=== PATIENT | male | born 1945 | race Two or more races ===

== ENCOUNTER → 2017-03-02 | Emergency (ER) | payer OTHER ==
[~2017-03-02] MED LIST: KETOROLAC TROMETHAMINE 30 MG/1 ML VIAL IVPUSH ONE; KETOROLAC TROMETHAMINE 30 MG/1 ML VIAL ONE; SODIUM CHLORIDE 500 ML IV STA
[2017-03-02 15:41] VITALS: TEMP 98.4
--- NOTE | 2017-03-02 16:28 | PDOC ---
History of Present Illness - General History Source: Patient Exam Limitations: No Limitations - History of Present Illness Initial Comments: 03/02/17 16:49 71 yo M with a PMHx of Gout, DM, HTN who presents with fatigue, recurrent gout pain in R knee and hematuria. Patient states his knee pain regularly comes and goes and he receives injections into his knees. Patient states his normal Gout medication is allopurinol. Patient denies taking blood thinners. Patient also notes that his BP was very low yesterday and he had decreased appetite. Patient denies fevers, chills, N/V/D. Patient unsure if he had black tarry stool. Surgical Hx: multiple surgery on his back for scoliosis. PCP: Dr. Tammie gonzalez <Althea Flores - Last Filed: 03/02/17 18:12> <Tracee Lao - Last Filed: 03/02/17 19:03> - General Chief Complaint: Pain, Acute Stated Complaint: WEAKNESS Time Seen by Provider: 03/02/17 16:16 Past History <Althea Flores - Last Filed: 03/02/17 18:12> - Past Medical History Anemia: No Asthma: Yes Cancer: No COPD: No CHF: No Dementia: No Diabetes: Yes HTN: Yes Hypercholesterolemia: No Liver Disease: No Seizures: No - Surgical History Abdominal Surgery: No Appendectomy: No Cholecystectomy: No Lung Surgery: No Neurologic Surgery: No Orthopedic Surgery: Yes (pt states "I had 2 back surgeries in 1959, but doesn't remember what type") - Immunization History Immunization Up to Date: Yes - Psycho/Social/Smoking Cessation Hx Anxiety: No Suicidal Ideation: No Smoking Status: No Smoking History: Never smoked Years of Tobacco Use: 50 Have you smoked in the past 12 months: No Number of Cigarettes Smoked Daily: 0 Hx Alcohol Use: No Drug/Substance Use Hx: No Substance Use Type: None <Tracee Lao - Last Filed: 03/02/17 19:03> - Past Medical History Allergies/Adverse Reactions: Allergies Allergy/AdvReac Type Severity Reaction Status Date / Time No Known Allergies Allergy Verified 03/02/17 15:31 Home Medications: Ambulatory Orders Lisinopril [Prinivil -] 40 mg PO DAILY 07/31/14 Amlodipine Besylate 10 mg PO DAILY 12/05/15 Acetaminophen [Tylenol] 325 mg PO QID PRN 03/02/17 Albuterol Sulfate [Proventil HFA Inhaler -] 1 - 2 inh PO TID 03/02/17 Allopurinol [Zyloprim -] 100 mg PO BID 03/02/17 Fluticasone/Salmeterol [Advair 250-50 Diskus] 1 each IH 03/02/17 Review of Systems - Review of Systems Able to Perform ROS?: Yes Comments:: CONSTITUTIONAL: + Generalized weakness, loss of appetite. Absent: fever, chills , diaphoresis, malaise HEENT: Absent: rhinorrhea, nasal congestion, throat pain, throat swelling, difficulty swallowing, mouth swelling, ear pain, eye pain, visual Changes CARDIOVASCULAR: + Chest pain. Absent: syncope, palpitations, irregular heart rate, lightheadedness, peripheral edema RESPIRATORY: Absent: cough, shortness of breath, dyspnea with exertion, orthopnea, wheezing, stridor, hemoptysis GASTROINTESTINAL: + Mild abdominal pain. Absent: abdominal distension, nausea, vomiting, diarrhea, constipation, melena, hematochezia GENITOURINARY: + hematuria Absent: dysuria, frequency, urgency, hesitancy, flank pain, genital pain SKIN: Absent: rash, itching, pallor HEMATOLOGIC/IMMUNOLOGIC: Absent: easy bleeding, easy bruising, lymphadenopathy, frequent infections ENDOCRINE: Absent: unexplained weight gain, unexplained weight loss, heat intolerance, cold intolerance MUSCULOSKELETAL: + recuurent gout pain in R knee. NEUROLOGIC: Absent: headache, focal weakness or paresthesia, dizziness, unsteady gait, seizure, mental status changes, bladder or bowel incontinence PSYCHIATRIC: Absent: anxiety, depression, suicidal or homicidal ideation, hallucination Is the patient limited Citizen Of [place] proficient: Yes <Althea Flores - Last Filed: 03/02/17 18:12> *Physical Exam - Vital Signs Last Vital Signs Temp Pulse Resp BP Pulse Ox 98.4 F 100 H 18 176/88 98 03/02/17 15:39 03/02/17 15:39 03/02/17 15:39 03/02/17 15:39 03/02/17 15:39 - Physical Exam Comments: 03/02/17 17:02 GENERAL: Male of short stature, well nourished. Awake and alert and oriented. No acute distress. HEENT: Normocephalic, atraumatic. PERRLA, EOMI. No conjunctival pallor. Sclera are non- icteric. Moist mucous membranes. Oropharynx is clear. NECK: Supple. Full ROM. No JVD. Carotid pulses 2+ and symmetric, without bruits. No thyromegaly. No lymphadenopathy. CARDIOVASCULAR: Regular rate and rhythm. No murmurs, rubs, or gallops. Distal pulses are 2+ and symmetric. PULMONARY: No evidence of respiratory distress. Lungs clear to auscultation bilaterally. No wheezing, rales or rhonchi. ABDOMINAL: Soft. Non-tender. Non-distended. No rebound or guarding. No organomegaly. Normoactive bowel sounds. MUSCULOSKELETAL Significant Scoliosis. No CVA tenderness. EXTREMITIES: No cyanosis. No clubbing. No edema. No calf tenderness. SKIN: Warm and dry. Normal capillary refill. No rashes. No jaundice. NEUROLOGICAL: No gross focal deficits. Gait not assessed. PSYCHIATRIC: Cooperative. Good eye contact. Appropriate mood and affect. <Althea Flores - Last Filed: 03/02/17 18:12> - Vital Signs Last Vital Signs Temp Pulse Resp BP Pulse Ox 98.4 F 100 H 18 176/88 98 03/02/17 15:39 03/02/17 15:39 03/02/17 15:39 03/02/17 15:39 03/02/17 15:39 <Tracee Lao - Last Filed: 03/02/17 19:03> Heart Score/ECG Review - ECG Intrepretation Comment:: ECG NSR @ 92 bpm Normal ECG <ChrismerleneAlthea - Last Filed: 03/02/17 18:12> ED Treatment Course - LABORATORY CBC & Chemistry Diagram: 03/02/17 16:43 03/02/17 16:43 - RADIOLOGY Radiograph Interpretation: CXR Impression: No significant interval change or acute lung disease is present <Althea Flores - Last Filed: 03/02/17 18:12> - LABORATORY CBC & Chemistry Diagram: 03/02/17 16:43 03/02/17 16:43 <Tracee Lao - Last Filed: 03/02/17 19:03> Medical Decision Making - Medical Decision Making 03/02/17 18:58 31-year-old male presents with exacerbation of his gout, fatigue and malaise.His rt knee is painful and he has been taking alluputrinol Review his labs shows unremarkable, chemistries, +1 blood in his urine, negative cardiac enzymes, normal electrolytes, no leukocytosis and a chest x- ray that does not show any acute pulmonary disease EKG is normal sinus rhythm with no evidence of acute ischemia The patient's right knee is not edematous or erythematous. He doesn't have a fever. Patient does see an orthopedist for injections for his gout and he will follow- up. He already has an appointment with Dr.El Garcia for hematuria. <Tracee Lao - Last Filed: 03/02/17 19:03> *DC/Admit/Observation/Transfer - Attestations Scribe Attestion: 03/02/17 17:07 Documentation prepared by Althea Flores, acting as medical director occupational health for Tracee Lao MD/DO. <Althea Flores - Last Filed: 03/02/17 18:12> <Tracee Lao - Last Filed: 03/02/17 19:03> Diagnosis at time of Disposition: Microscopic hematuria Gout attack Qualifiers: Gout site: knee Gout etiology: unspecified cause Laterality: right Qualified Code(s): M10.9 - Gout, unspecified - Discharge Dispostion Disposition: HOME Condition at time of disposition: Stable - Referrals Referrals: Marti Macario MD [Primary Care Provider] - - Patient Instructions Printed Discharge Instructions: DI for Gout, DI for Hematuria Additional Instructions: -please keep your doctor's appointment -Take your lab results with you when you see your physician -return for any worsening symptoms -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
[2017-03-02 17:01] VITALS: BMI 34.4
[2017-03-02 17:18] LABS: BASOPHIL 0.4 % (0-2.0); EOSINOPHIL 3.2 % (0-4.5); MCHC 32.9 g/dl (32.0-35.9); MEAN CELL VOLUME 94.3 fl (80-96); MEAN PLT VOLUME 8.8 fl (7.5-11.1); PLATELET COUNT 204 K/MM3 (134-434); RDW 13.6 % (11.9-15.9); TROPONIN I < 0.02 ng/ml (0.00-0.05)
[2017-03-02 17:20] LABS: ALBUMIN 3.4 g/dl (3.4-5.0); BILIRUBIN,TOTAL 0.5 mg/dL (0.2-1.0); CREATININE 1.3 mg/dL (0.7-1.3); TOT PROT 7.6 g/dl (6.4-8.2)
[2017-03-02 17:21] LABS: INR 1.2 (0.82-1.09); PROTHROMBIN TIME (PATIENT) 13.3 SEC (9.98-11.88)
[2017-03-02 18:13] LABS: URINE APPEARANCE CLEAR; URINE BILIRUBIN NEGATIVE (NEGATIVE); URINE COLOR YELLOW; URINE GLUCOSE (UA) NEGATIVE (NEGATIVE); URINE KETONE TRACE (NEGATIVE); URINE LEUK ESTERASE NEGATIVE (NEGATIVE); URINE NITRITE NEGATIVE (NEGATIVE); URINE PROTEIN NEGATIVE (NEGATIVE); URINE UROBILINOGEN NEGATIVE E.U./dl (0.2-1.0)
[2017-03-02 18:14] LABS: URINE BLOOD 1+ (NEGATIVE)
[2017-03-02 18:34] VITALS: BP 117/77; PULSE 89
[2017-03-02 20:02] LABS: URINE MUCUS RARE; URINE RBC 1 /hpf (0-3); URINE WBC 1 /hpf (3-5)
--- NOTE | 2017-03-03 12:34 | EKG ---
Test Reason : Blood Pressure : / mmHG Vent. Rate : 092 BPM Atrial Rate : 092 BPM P-R Int : 138 ms QRS Dur : 072 ms QT Int : 336 ms P-R-T Axes : 066 -20 018 degrees QTc Int : 415 ms NORMAL SINUS RHYTHM NORMAL ECG WHEN COMPARED WITH ECG OF 17-NOV-2014 16:57, NO SIGNIFICANT CHANGE WAS FOUND Confirmed by CARLEY JAMES MD ([id number]) on 03/03/2017 12:34:14 PM Referred By: Confirmed By:CARLEY JAMES MD
== END | disposition home or self-care (01) ==
LOC: JER 15:17
PROC: 3E0333Z Introduction of Anti-inflammatory into Peripheral Vein, Percutaneous Approach (ICD-10-PCS; principal; 2017-03-02)
DX: R31.29 Other microscopic hematuria (principal); M10.9 Gout, unspecified; I10 Essential (primary) hypertension; E11.9 Type 2 diabetes mellitus without complications; J45.909 Unspecified asthma, uncomplicated
CPT/HCPCS: 36415; 71010-TC; 80053; 81003; 81015; 82272; 82550; 84484; 85025; 85610; 85651; 86850; 86900; 86901; 87086; 93005; 93010; 96374; 99283-25

== ENCOUNTER 2017-04-17 06:19 | Inpatient (IN) | payer OTHER ==
[2017-04-17 06:35] VITALS: BMI 24.4
[2017-04-17 07:09] LABS: BASOPHIL 0.1 % (0-2.0); EOSINOPHIL 0.3 % (0-4.5); MCH 31.1 pg (25.7-33.7); MCHC 33.2 g/dl (32.0-35.9); MEAN CELL VOLUME 93.7 fl (80-96); NEUTROPHILS 89.6 % (42.8-82.8); PLATELET COUNT 153 K/MM3 (134-434); RDW 13.9 % (11.9-15.9); WHITE BLOOD COUNT 11.2 K/mm3 (4.0-10.0)
[2017-04-17 07:33] LABS: ALBUMIN 2.9 g/dl (3.4-5.0); ANION GAP 8 (8-16); BILIRUBIN,TOTAL 0.9 mg/dL (0.2-1.0); CALCIUM 7.7 mg/dL (8.5-10.1); CO2 21 mmol/L (21-32); CREATININE 1.3 mg/dL (0.7-1.3); GLUCOSE,RANDOM 119 mg/dL (74-106); SGOT/AST 11 U/L (15-37); SGPT/ALT 11 U/L (12-78); TOT PROT 6.2 g/dl (6.4-8.2)
[2017-04-17 07:34] LABS: ALK PHOS 95 U/L (45-117)
--- NOTE | 2017-04-17 07:49 | PDOC ---
History of Present Illness - History of Present Illness Initial Comments: 04/17/17 14:58 The patient is a 71 year old male, with a significant past medical history of hypertension (taking lisinopril 40mg), diabetes mellitus (d/c from medication), gout, and scoliosis (s/p multiple surgeries), who presents to the emergency department with fever (Tmax 101.7F) and chills since last night. The patient reports having a prostate biopsy on . He states he was placed on levaquin after the procedure for dysuria and urethral bleeding. He denies chest pain, shortness of breath, headache and dizziness. He denies back pain, nausea, vomit, diarrhea and constipation. He denies frequency and urgency. Allergies: NKDA PCP - Dr. Macario Urologist - Dr. Lopez <Geraldine Vences - Last Filed: 04/17/17 14:57> <Lee Rowe - Last Filed: 04/17/17 16:29> - General Chief Complaint: Respiratory Stated Complaint: FEVER Time Seen by Provider: 04/17/17 07:43 Past History <Geraldine Vences - Last Filed: 04/17/17 14:57> - Past Medical History Anemia: No Asthma: Yes Cancer: No COPD: No CHF: No Dementia: No Diabetes: Yes HTN: Yes Hypercholesterolemia: No Liver Disease: No Seizures: No - Surgical History Abdominal Surgery: No Appendectomy: No Cholecystectomy: No Lung Surgery: No Neurologic Surgery: No Orthopedic Surgery: Yes (pt states "I had 2 back surgeries in 1959, but doesn't remember what type") - Immunization History Immunization Up to Date: Yes - Psycho/Social/Smoking Cessation Hx Anxiety: No Suicidal Ideation: No Smoking Status: No Smoking History: Unknown if ever smoked Years of Tobacco Use: 50 Have you smoked in the past 12 months: No Number of Cigarettes Smoked Daily: 0 Information on smoking cessation initiated: No Hx Alcohol Use: No Drug/Substance Use Hx: No Substance Use Type: None <Lee Rowe - Last Filed: 04/17/17 16:29> - Past Medical History Allergies/Adverse Reactions: Allergies Allergy/AdvReac Type Severity Reaction Status Date / Time No Known Allergies Allergy Verified 04/17/17 06:33 Home Medications: Ambulatory Orders Acetaminophen [Mapap] 500 mg PO TID 04/17/17 Albuterol Sulfate [Proventil HFA Inhaler -] 1 - 2 inh PO TID 04/17/17 Allopurinol [Zyloprim -] 100 mg PO BID 04/17/17 Amlodipine Besylate/Benazepril [Lotrel 5-40 mg Capsule] 1 each PO DAILY Levofloxacin [Levaquin -] 500 mg PO DAILY 04/17/17 Paroxetine HCl [Paxil] 20 mg PO DAILY 04/17/17 Tamsulosin HCl 0.4 mg PO DAILY 04/17/17 Zolpidem Tartrate [Ambien] 10 mg PO HS 04/17/17 Review of Systems - Review of Systems Able to Perform ROS?: Yes Comments:: 04/17/17 14:58 CONSTITUTIONAL: (+) Fever, Chills, No reported:Diaphoresis, Generalized Weakness, Malaise, Loss of Appetite HEENT: No reported: Rhinorrhea, Nasal Congestion, Throat Pain, Throat Swelling, Difficulty Swallowing, Mouth Swelling, Ear Pain, Eye Pain, Visual Changes CARDIOVASCULAR: No reported: Chest Pain, Syncope, Palpitations, Irregular Heart Rate, Lightheadedness, Peripheral Edema RESPIRATORY: No reported: Cough, Shortness of Breath, SOB with Exertion, Orthopnea, Wheezing , Stridor, Hemoptysis GASTROINTESTINAL: No reported: Abdominal pain, Abdominal Distension, Nausea, Vomiting, Diarrhea, Constipation, Melena, Hematochezia GENITOURINARY: No reported: Dysuria, Frequency, Urgency, Hesitancy, Flank Pain, Genital Pain MUSCULOSKELETAL: No reported: Myalgia, Arthralgia, Joint Swelling, Back pain, Neck Pain SKIN: No reported: Rash, Itching, Pallor HEMEATOLOGIC/IMMUNOLOGIC: No reported: Easy Bleeding, Easy Bruising, Lymphadenopathy, Frequent infections ENDOCRINE: No reported: Unexplained Weight Gain, Unexplained Weight Loss, Heat Intolerance , Cold Intolerance NEUROLOGIC: No reported: Headache, Focal Weakness, Paresthesias, Vertigo, Lightheadedness, Unsteady Gait, Seizure, Mental Status Changes, Incontinence PSYCHIATRIC: No reported: Anxiety, Depression <Geraldine Vences - Last Filed: 04/17/17 14:57> *Physical Exam - Vital Signs Last Vital Signs Temp Pulse Resp BP Pulse Ox 101.0 F H 90 20 137/69 96 04/17/17 08:09 04/17/17 08:09 04/17/17 08:09 04/17/17 08:09 04/17/17 08:09 - Physical Exam Comments: 04/17/17 14:59 GENERAL: (+) The patient is febrile, awake, alert, and fully oriented, Nontoxic - in no acute distress. HEAD: Normocephalic, atraumatic. EYES: extraocular movements intact, sclera anicteric, conjunctiva clear. ENT: Normal voice, Moist mucous membranes. NECK: Normal range of motion, supple LUNGS: Breath sounds equal, clear to auscultation bilaterally. No wheezes, no rhonchi, no rales. HEART: Regular rate and rhythm, without murmur, rub or gallop. ABDOMEN: Soft, nontender, normoactive bowel sounds. No guarding, no rebound.No CVA tenderness EXTREMITIES: Normal range of motion, no edema. No clubbing or cyanosis. No cords, erythema, or tenderness. NEUROLOGICAL: No facial assymetry, Normal speech, PSYCH: Normal mood, normal affect. SKIN: Warm, Dry, normal turgor, <Geraldine Vences - Last Filed: 04/17/17 14:57> - Vital Signs Last Vital Signs Temp Pulse Resp BP Pulse Ox 101.7 F H 108 H 20 131/76 95 04/17/17 06:33 04/17/17 06:33 04/17/17 06:33 04/17/17 06:33 04/17/17 07:07 <Lee Rowe - Last Filed: 04/17/17 16:29> Heart Score/ECG Review - ECG Impressions Comment:: 04/17/17 16:29 Twelve-lead EKG was performed and reviewed by me. There is normal sinus rhythm with a normal rate. Rate of 99 Left axis deviation <Lee Rowe - Last Filed: 04/17/17 16:29> ED Treatment Course - LABORATORY CBC & Chemistry Diagram: 04/17/17 09:00 04/17/17 06:40 - ADDITIONAL ORDERS Additional order review: 04/17/17 06:40 RBC 3.58 L MCV 93.7 MCHC 33.2 RDW 13.9 MPV 8.0 Neutrophils % 89.6 H D Lymphocytes % 4.1 L D Monocytes % 5.9 Eosinophils % 0.3 D Basophils % 0.1 - RADIOLOGY Radiograph Interpretation: 04/17/17 09:04 EXAM#: TYPE/EXAM: RESULT: [id number] RAD/CHEST X-RAY PORTABLE* AP portable chest was read by Lenard Marie MD at 08:55 Since 03/02/2017, there is some new platelike atelectasis at the left base. There is a scoliosis, apical lordotic projection, prominent sclerotic knob, normal chris and normal heart. There is no sign of infiltrate or failure. The angles are sharp. The soft tissues are intact. Correlation recommended. - Medications Given in the ED: ED Medications Discontinued Medications Generic Name Dose Route Start Last Admin Trade Name Freq PRN Reason Stop Dose Admin Acetaminophen 650 mg 04/17/17 08:11 04/17/17 08:25 Tylenol - PO 04/17/17 08:12 650 mg ONCE ONE Administration <Geraldine Vences - Last Filed: 04/17/17 14:57> - LABORATORY CBC & Chemistry Diagram: 04/17/17 09:00 04/17/17 06:40 - ADDITIONAL ORDERS Additional order review: 04/17/17 06:40 RBC 3.58 L MCV 93.7 MCHC 33.2 RDW 13.9 MPV 8.0 Neutrophils % 89.6 H D Lymphocytes % 4.1 L D Monocytes % 5.9 Eosinophils % 0.3 D Basophils % 0.1 <Lee Rowe - Last Filed: 04/17/17 16:29> Medical Decision Making - Medical Decision Making 04/17/17 10:03 Dr. Lopez was called at the office at the patient's case was discussed. <Geraldine Vences - Last Filed: 04/17/17 14:57> - Medical Decision Making 04/17/17 08:25 71y M hx dm, htn, HL, recent prostate biopsy on thrusday presenting with fever/ chills since last nightand burning on urination without other complaints. suspect gram neagative sepsis 04/17/17 08:38 04/17/17 10:[address] Johnson agreed with admission dr. lauren notified agreed with admission will admit for further mangaement of sepsis and suspected bacteremia Case discussed in detail with admitting physician including history, physical exam and ancillary studies. Admitting physician has assumed care for the patient, will follow all pending diagnostics and will complete the evaluation and treatment. <Lee Rowe - Last Filed: 04/17/17 16:29> *DC/Admit/Observation/Transfer - Attestations Scribe Attestion: 04/17/17 09:05 Documentation prepared by Geraldine Vences, acting as medical care administrator for Lee Rowe MD, <Geraldine Vences - Last Filed: 04/17/17 14:57> - Discharge Dispostion Admit: Yes <Lee Rowe - Last Filed: 04/17/17 16:29> Diagnosis at time of Disposition: Sepsis Qualifiers: Sepsis type: sepsis due to unspecified organism Qualified Code(s): A41.9 - Sepsis, unspecified organism - Referrals
[2017-04-17] MEDS ORDERED: ACETAMINOPHEN 325 MG TABLET (FP) PO ONE ×2 (08:11→20:03)
[2017-04-17] MEDS ORDERED: ACETAMINOPHEN 325 MG TABLET (FP) ONE (08:13)
[2017-04-17 09:07] LABS: VENOUS PH 7.4 (7.32-7.42)
[2017-04-17 09:08] LABS: VENOUS BLOOD GAS HCO3 23.2 meq/L (19-25)
[2017-04-17 09:15] LABS: BASOPHIL 0.1 % (0-2.0); EOSINOPHIL 0.2 % (0-4.5); MCH 30.8 pg (25.7-33.7); MEAN CELL VOLUME 93.5 fl (80-96); NEUTROPHILS 87.5 % (42.8-82.8); PLATELET COUNT 158 K/MM3 (134-434); RDW 13.9 % (11.9-15.9); WHITE BLOOD COUNT 11.8 K/mm3 (4.0-10.0)
[2017-04-17 09:20] LABS: URINE APPEARANCE CLEAR; URINE BILIRUBIN NEGATIVE (NEGATIVE); URINE BLOOD 1+ (NEGATIVE); URINE COLOR LTYELLOW; URINE GLUCOSE (UA) NEGATIVE (NEGATIVE); URINE KETONE NEGATIVE (NEGATIVE); URINE NITRITE NEGATIVE (NEGATIVE); URINE PROTEIN NEGATIVE (NEGATIVE); URINE UROBILINOGEN NEGATIVE mg/dL (0.2-1.0)
[2017-04-17 09:38] LABS: TROPONIN I < 0.02 ng/ml (0.00-0.05)
[2017-04-17] MEDS ORDERED: AMPICILLIN NA/SULBACTAM NA 3 GM in SODIUM CHLORIDE 100 ML IVPB ONE ×2 (09:40→10:30)
[2017-04-17 09:44] LABS: URINE LEUK ESTERASE 2+ (NEGATIVE)
[2017-04-17 09:51] LABS: URINE BACTERIA FEW /hpf (NONE SEEN); URINE HYALINE CAST 3 /lpf; URINE MUCUS RARE; URINE RBC 3 /hpf (0-3); URINE WBC 64 /hpf (3-5)
[2017-04-17 10:00] LABS: INR 1.43 (0.82-1.09); PROTHROMBIN TIME (PATIENT) 15.8 SEC (9.98-11.88)
[2017-04-17 10:03] LABS: ACTIVATED PTT 29.7 SECONDS (26.9-34.4)
[2017-04-17] MEDS ORDERED: ACETAMINOPHEN 325 MG TABLET (FP) PO PRN (10:58)
--- NOTE | 2017-04-17 11:01 | HP ---
CHIEF COMPLAINT: fevers and chills PCP: Dr. Cho HISTORY OF PRESENT ILLNESS: 71 yr old man with HTN, gout, enlarged prostate bibems to ED with fever and chills since last night starting at 6pm and sob this morning. He underwent a prostate biopsy on in 's office. Since then he has been having dysuria, hematuria and urinary frequency. ER course was notable for: (1) lactic acid 1.2, EKG NSR without acute changes (2) fever 101, u/a with elevated wbc, leucocytosis Recent Travel: none PAST MEDICAL HISTORY: HTN scoliosis DM - no longer diabetic Enlarged prostate right scrotal hernia PAST SURGICAL HISTORY: hx of spinal surgery in the 50s for scoliosis recent prostate biopsy on previous prostate biopsy 10 yrs ago for enlarged prostate, after which he also experienced fever/chills and required hospitalization Social History: Smoking:quit >20 yrs ago, smoked 1pk/day for 5 years Alcohol: never Drugs: never Family History: Mom with uterine cancer and DM father with stomach ulcer Brother with lung cancer (was a chronic smoker) Allergies No Known Allergies Allergy (Verified 04/17/17 06:33) Home medications: confirmed from [facility] on [address] prescriber: Dr. De, rx picked up Levaquin 500mg 1 tablet daily - 14 days, picked up flomax 0.4mg 1 tablet daily tylenol 500mg 2tabs twice a day - 120 pills picked up 04/05 ciprodex otic suspension for 5 days nystatin powder 60gm for foot bid for 5 days picked up 03/[address] Tammie brito 10mg [address] Cho paxil 20mg daily (Dr. Elam'official) february 13 singular 10mg daily October 23 2016 Lotrel 10-40 30-day supply did not refill it HOME MEDICATIONS: Home Medications Medication Instructions Recorded Acetaminophen [Mapap] 500 mg PO TID 04/17/17 Albuterol Sulfate [Proventil HFA 1 - 2 inh PO TID 04/17/17 Inhaler -] Amlodipine Besylate/Benazepril 1 each PO DAILY 04/17/17 [Lotrel 5-40 mg Capsule] Levofloxacin [Levaquin -] 500 mg PO DAILY 04/17/17 Tamsulosin HCl 0.4 mg PO DAILY 04/17/17 REVIEW OF SYSTEMS CONSTITUTIONAL: Present: fever, chills, Absent: diaphoresis, generalized weakness, malaise, loss of appetite, weight change HEENT: Absent: rhinorrhea, nasal congestion, throat pain, throat swelling, difficulty swallowing, mouth swelling, ear pain, eye pain, visual changes CARDIOVASCULAR: Absent: chest pain, syncope, palpitations, irregular heart rate, lightheadedness , peripheral edema RESPIRATORY: Present:shortness of breath, Absent: cough, dyspnea with exertion GASTROINTESTINAL: Absent: abdominal pain, abdominal distension, nausea, vomiting, diarrhea, constipation, melena, hematochezia GENITOURINARY: Present:dysuria, frequency,hematuria, Absent: urgency, hesitancy, flank pain, genital pain MUSCULOSKELETAL: Absent: myalgia, arthralgia, joint swelling, back pain, neck pain NEUROLOGIC: Absent: headache,dizziness, unsteady gait, seizure, mental status changes, bladder or bowel incontinence PHYSICAL EXAMINATION GENERAL: Awake, alert, and fully oriented, in no acute distress. HEAD: Normal with no signs of trauma. EYES: Pupils equal, round and reactive to light, extraocular movements intact, sclera anicteric, conjunctiva clear. No lid lag. EARS, NOSE, THROAT: Ears normal, nares patent, oropharynx clear without exudates. Moist mucous membranes. NECK: Normal range of motion, supple without lymphadenopathy, JVD, or masses. LUNGS: Breath sounds equal, clear to auscultation bilaterally. No wheezes, and no crackles. No accessory muscle use. HEART: Regular rate and rhythm, normal S1 and S2 without murmur, rub or gallop. ABDOMEN: Soft, nontender, not distended, normoactive bowel sounds, no guarding, no rebound, no masses. MUSCULOSKELETAL: sciolosis, wnl range of motion at neck, shoulder, elbow, hip, wrists, knees and ankles. No CVA tenderness. well-healed lumbar spine scar and well healed left lower back scar. no spinal tenderness UPPER EXTREMITIES: 2+ radial pulses, warm, well-perfused. No cyanosis. No clubbing. No peripheral edema. LOWER EXTREMITIES: 1+ dp pulses, warm, well-perfused. No calf tenderness. No peripheral edema. NEUROLOGICAL: Cranial nerves II-XII intact. Normal speech. Normal gait. facial symmetry PSYCHIATRIC: Cooperative. Good eye contact. Appropriate mood and affect. SKIN: Warm, dry, normal turgor, no rashes or lesions noted, normal capillary refill. GENITAL: left scrotal hernia in lower part of scrotum, testes soft/mobile, normal uncircumcised male genitalia, no discharge, no erythema, no lesions. Active Medications Acetaminophen (Tylenol -) 500 mg PO TID [facility] Allopurinol (Zyloprim -) 100 mg PO BID [facility] Heparin Sodium (Porcine) (Heparin -) 5,000 unit SQ BID LIOR Sodium Chloride (Normal Saline -) 1,000 mls @ 100 mls/hr IV ASDIR [facility] Levofloxacin (Levaquin 500 Mg Premixed Ivpb -) 100 mls @ 100 mls/hr IVPB DAILY ONE Stop: 04/18/17 13:12 Non-Formulary Medication (Zolpidem Tartrate [Ambien]) 10 mg PO HS [facility] Paroxetine HCl (Paxil -) 20 mg PO DAILY [facility] Tamsulosin HCl (Flomax -) 0.4 mg PO DAILY [facility] Active Medications Acetaminophen (Tylenol -) 500 mg PO TID [facility] Last Admin: 04/17/17 14:28 Dose: 500 mg Heparin Sodium (Porcine) (Heparin -) 5,000 unit SQ BID LIOR Sodium Chloride (Normal Saline -) 1,000 mls @ 100 mls/hr IV ASDIR [facility] Last Admin: 04/17/17 13:15 Dose: 100 mls/hr Levofloxacin (Levaquin 250 Mg Premixed Ivpb -) 50 mls @ 50 mls/hr IVPB DAILY [facility] Paroxetine HCl (Paxil -) 20 mg PO DAILY [facility] Tamsulosin HCl (Flomax -) 0.4 mg PO DAILY [facility] Zolpidem Tartrate (Ambien -) 5 mg PO HS PRN cxy: without acute lung pathology EKG: NSR ASSESSMENT/PLAN: 71 yr old man with recent prostate biopsy presents with sepsis likely from UTI( leuk+, dysuria, leucocytosis in u/a) or prostatitis. #sepsis (tachy, fever, source) IVF NS @100c/hr levaquin 500mg IVPB loading dose today and 250mg ivpb tomorrow, according to cockcroft formula pt's Cr is 39, this would be the renal dose for him. discussed with pharmacist. tylenol 500mg po TID for fevers await bld and urine cx Dr. ricardo was unable to be reached today, consult placed #HTN - hold lotrel as pt not on it since Sep, currently normotensive #Corrected Ca+ 8.5 #hx of DM - hba1c to r/o DM - not on any medications DVT: heparin BID Diet: sodium controlled regular Visit type - Emergency Visit Emergency Visit: Yes ED Registration Date: 04/17/17 Care time: The patient presented to the Emergency Department on the above date and was hospitalized for further evaluation of their emergent condition. - New Patient This patient is new to me today: Yes Date on this admission: 04/17/17 - Critical Care Critical Care patient: No
[2017-04-17] MEDS ORDERED: LEVOFLOXACIN 500 MG IVPB 100 ML IVPB ONE (12:13)
[2017-04-17] MEDS: SODIUM CHLORIDE 1,000 ML IV SCH (13:15)
--- NOTE | 2017-04-17 14:12 | PN ---
Teaching Attending Note Name of Resident: Mirna Dyson ATTENDING PHYSICIAN STATEMENT I saw and evaluated the patient. I reviewed the resident's note and discussed the case with the resident. I agree with the resident's findings and plan as documented. SUBJECTIVE:71yo M c/o dysuria with assoc subjective fevers and chills x3days. Pt had prostate Bx on 04/[address] Lopez and started developing symptoms once he got home. started on levaquin po and has taken it for 3 days. had similar episode several years ago when he had prostate bx at that time. denies Cp, SOB,N /V/C/D, hematuria. OBJECTIVE: Last Vital Signs Temp Pulse Resp BP Pulse Ox 98.8 F 81 20 135/66 96 04/17/17 12:59 04/17/17 12:59 04/17/17 12:59 04/17/17 12:59 04/17/17 11:20 General NAD CV S1 S2 RRR no murmur/rub/gallop Lungs CTA B/L no wheezing/rales/rhonchi Abdomen soft NT/ND Extremities no pedal edema ASSESSMENT AND PLAN: 71yo M with PMH HTN and DM and gout presented to the ER with dysuria with fever and chills and found to be septic 1. Sepsis with high suspicion for UTI- medicine admission. Tm 101 with tachypnea meeting SIRS criteria. Awaiting UA but has high suspicion for UTI vs prostatis due to recent procedure. switch to Levaquin IV. BCx and UCx. consult Dr Jeffry Garcia. cont IVF, flomax 2. HTN- currently normotensive. hold oral agents as currently septic. will resume when required 3. gout- no signs of gout attack. hold allopurinol at this time 4. Hx of DM- states he is no longer diabetic and does not take medications at this time. check A1c 5. DVT ppx- start hep sq
[2017-04-17] MEDS: ACETAMINOPHEN 500 MG TABLET (FP) PO SCH ×2 (14:28→21:51)
[2017-04-17] MEDS: HEPARIN NA (PORCINE) 5,000 UNITS/ML 1ML VIAL SQ SCH (21:50)
[2017-04-17] MEDS ORDERED: ALLOPURINOL 100 MG TABLET (FP) PO SCH (22:00)
[2017-04-17] MEDS ORDERED: ZOLPIDEM TARTRATE 5 MG TABLET PO PRN (22:00)
[2017-04-18] MEDS: SODIUM CHLORIDE 1,000 ML IV SCH (04:38)
[2017-04-18] MEDS: ACETAMINOPHEN 500 MG TABLET (FP) PO SCH ×3 (06:05→21:52)
[2017-04-18] MEDS ORDERED: ONDANSETRON 4 MG/2 ML VIAL IVPB ONE (06:24)
[2017-04-18 07:46] LABS: BASOPHIL 0.2 % (0-2.0); EOSINOPHIL 0.7 % (0-4.5); MCH 31.9 pg (25.7-33.7); MCHC 33.8 g/dl (32.0-35.9); MEAN CELL VOLUME 94.3 fl (80-96); MEAN PLT VOLUME 8.1 fl (7.5-11.1); NEUTROPHILS 84.4 % (42.8-82.8); PLATELET COUNT 150 K/MM3 (134-434); RDW 14.2 % (11.9-15.9); WHITE BLOOD COUNT 10.8 K/mm3 (4.0-10.0)
[2017-04-18 08:16] LABS: ANION GAP 7 (8-16); CO2 22 mmol/L (21-32); CREATININE 1.1 mg/dL (0.7-1.3); GLUCOSE,RANDOM 100 mg/dL (74-106)
[2017-04-18 08:17] LABS: CALCIUM 8.5 mg/dL (8.5-10.1)
--- NOTE | 2017-04-18 09:14 | PN ---
Progress Note (short form) - Note Progress Note: currently asymptomatic. fevers and chills resolved. denies CP, SOB,fever, chills , N/V/C/D Current Medications Generic Name Dose Route Start Last Admin Trade Name Sol PRN Reason Stop Dose Admin Acetaminophen 500 mg 04/17/17 14:00 04/18/17 06:05 Tylenol - PO 500 mg TID LIOR Administration Heparin Sodium (Porcine) 5,000 unit 04/17/17 22:00 04/17/17 21:50 Heparin - SQ 5,000 unit BID LIOR Administration Sodium Chloride 1,000 mls @ 100 mls/hr 04/17/17 11:00 04/18/17 04:38 Normal Saline - IV 100 mls/hr ASDIR LIOR Administration Levofloxacin 50 mls @ 50 mls/hr 04/18/17 10:00 Levaquin 250 Mg Premixed Ivpb - IVPB DAILY LIOR Famotidine/Sodium Chloride 50 mls @ 100 mls/hr 04/18/17 10:00 Pepcid 20 Mg Premixed Ivpb - IVPB BID LIOR Paroxetine HCl 20 mg 04/18/17 10:00 Paxil - PO DAILY LIOR Tamsulosin HCl 0.4 mg 04/18/17 10:00 Flomax - PO DAILY LIOR Zolpidem Tartrate 5 mg 04/17/17 22:00 Ambien - PO HS PRN Last Vital Signs Temp Pulse Resp BP Pulse Ox 98.9 F 80 18 131/67 95 04/18/17 08:00 04/18/17 08:00 04/18/17 08:00 04/18/17 08:00 04/17/17 21:00 General NAD CV S1 S2 RRR no murmur/rub/gallop Lungs CTA B/L no wheezing/rales/rhonchi Abdomen soft NT/ND Extremities no pedal edema CBCD WBC 10.8 K/mm3 (4.0-10.0) H 04/18/17 06:55 RBC 3.58 M/mm3 (4.00-5.60) L 04/18/17 06:55 Hgb 11.4 GM/dL (11.7-16.9) L 04/18/17 06:55 Hct 33.8 % (35.4-49) L 04/18/17 06:55 MCV 94.3 fl (80-96) 04/18/17 06:55 MCHC 33.8 g/dl (32.0-35.9) 04/18/17 06:55 RDW 14.2 % (11.9-15.9) 04/18/17 06:55 Plt Count 150 K/MM3 (134-434) 04/18/17 06:55 MPV 8.1 fl (7.5-11.1) 04/18/17 06:55 CMP Sodium 137 mmol/L (136-145) 04/18/17 06:55 Potassium 3.8 mmol/L (3.5-5.1) 04/18/17 06:55 Chloride 108 mmol/L (98-107) H 04/18/17 06:55 Carbon Dioxide 22 mmol/L (21-32) 04/18/17 06:55 Anion Gap 7 (8-16) L 04/18/17 06:55 BUN 14 mg/dL (7-18) D 04/18/17 06:55 Creatinine 1.1 mg/dL (0.7-1.3) 04/18/17 06:55 Creat Clearance w eGFR 54.11 (>60) 04/17/17 06:40 Calcium 8.5 mg/dL (8.5-10.1) 04/18/17 06:55 Total Bilirubin 0.9 mg/dL (0.2-1.0) D 04/17/17 06:40 AST 11 U/L (15-37) L D 04/17/17 06:40 ALT 11 U/L (12-78) L D 04/17/17 06:40 Alkaline Phosphatase 95 U/L (45-117) 04/17/17 06:40 Total Protein 6.2 g/dl (6.4-8.2) L 04/17/17 06:40 Albumin 2.9 g/dl (3.4-5.0) L 04/17/17 06:40 Microbiology 04/17/17 09:00 Urine Culture - Final Urine - Urine Clean Catch NO GROWTH OBTAINED 04/17/17 06:40 Blood Culture - Preliminary Blood - Peripheral Venous NO GROWTH OBTAINED AFTER 24 HOURS, INCUBATION TO CONTINUE FOR 4 DAYS. 04/17/17 06:40 Blood Culture - Preliminary Blood - Peripheral Venous NO GROWTH OBTAINED AFTER 24 HOURS, INCUBATION TO CONTINUE FOR 4 DAYS. ASSESSMENT AND PLAN: 71yo M with PMH HTN and DM and gout presented to the ER with dysuria with fever and chills and found to be septic 1. Sepsis with high suspicion for UTI- afebrile 24H. clinically improved. Ucx negative however was on po abx for 3 days prior to presentation. awaiting urology evaluation. on levaquin day 2. d/c IVF. 2. HTN- slightly above goal. will re-start acei at lower dose. hold norvasc. 3. gout- no signs of gout attack. hold allopurinol at this time 4. Hx of DM- states he is no longer diabetic and does not take medications at this time. A1c pending 5. DVT ppx- hep sq 6. d/c planning in the AM, as awaiting urology consult. no response from answering service Visit type - Emergency Visit Emergency Visit: Yes ED Registration Date: 04/17/17 Care time: The patient presented to the Emergency Department on the above date and was hospitalized for further evaluation of their emergent condition. - New Patient This patient is new to me today: No - Critical Care Critical Care patient: No - Discharge Referral Referred to [facility] No
[2017-04-18] MEDS ORDERED: LEVOFLOXACIN 500 MG IVPB 100 ML IVPB SCH (10:00)
[2017-04-18] MEDS: LEVOFLOXACIN 250 MG IVPB 50 ML IVPB SCH (10:02)
[2017-04-18] MEDS: FAMOTIDINE 20 MG/50 ML IVPB 50 ML IVPB SCH ×2 (10:02→21:56)
[2017-04-18] MEDS: HEPARIN NA (PORCINE) 5,000 UNITS/ML 1ML VIAL SQ SCH ×2 (10:03→21:56)
[2017-04-18] MEDS: LISINOPRIL 20 MG TABLET (FP) PO SCH (10:03)
[2017-04-18] MEDS: TAMSULOSIN HCL 0.4 MG CAP.ER.24H (FP) PO SCH (10:03)
[2017-04-18] MEDS: PARoxetine HCL 20 MG TABLET (FP) PO SCH (10:03)
[2017-04-19] MEDS: ACETAMINOPHEN 500 MG TABLET (FP) PO SCH (06:22)
[2017-04-19 08:44] VITALS: BP 145/65; PULSE 73; TEMP 98.2
[2017-04-19] MEDS: TAMSULOSIN HCL 0.4 MG CAP.ER.24H (FP) PO SCH (08:55)
--- NOTE | 2017-04-19 09:28 | EKG ---
Test Reason : Blood Pressure : / mmHG Vent. Rate : 099 BPM Atrial Rate : 099 BPM P-R Int : 136 ms QRS Dur : 084 ms QT Int : 332 ms P-R-T Axes : 031 -30 027 degrees QTc Int : 426 ms NORMAL SINUS RHYTHM LEFT AXIS DEVIATION ABNORMAL ECG WHEN COMPARED WITH ECG OF 02-MAR-2017 17:04, NO SIGNIFICANT CHANGE WAS FOUND Confirmed by PHILLY UP MD ([id number]) on 04/19/2017 9:28:07 AM Referred By: Confirmed By:PHILLY UP MD
[2017-04-19] MEDS: LISINOPRIL 20 MG TABLET (FP) PO SCH (10:30)
[2017-04-19] MEDS: PARoxetine HCL 20 MG TABLET (FP) PO SCH (10:30)
[2017-04-19] MEDS: HEPARIN NA (PORCINE) 5,000 UNITS/ML 1ML VIAL SQ SCH (10:32)
[2017-04-19] MEDS: FAMOTIDINE 20 MG/50 ML IVPB 50 ML IVPB SCH (10:37)
[2017-04-19] MEDS: LEVOFLOXACIN 250 MG IVPB 50 ML IVPB SCH (10:37)
[2017-04-19] MEDS ORDERED: LEVOFLOXACIN 250 MG TABLET (FP) PO SCH (11:30)
--- NOTE | 2017-04-19 11:49 | PN ---
Teaching Attending Note Name of Resident: Miguel Angel Roper ATTENDING PHYSICIAN STATEMENT I saw and evaluated the patient. I reviewed the resident's note and discussed the case with the resident. I agree with the resident's findings and plan as documented. SUBJECTIVE:asymptomatic. denies CP, SOB, fever, chills, abdominal pain, dysuria , hematuria OBJECTIVE: Last Vital Signs Temp Pulse Resp BP Pulse Ox 98.2 F 73 18 145/65 95 04/19/17 08:41 04/19/17 08:41 04/19/17 08:41 04/19/17 08:41 04/18/17 21:00 General NAD Abdomen soft NT/ND no suprapubic tenderness ASSESSMENT AND PLAN: 71yo M with PMH HTN and DM and gout presented to the ER with dysuria with fever and chills and found to be septic 1. Sepsis with high suspicion for UTI- afebrile 24H. clinically improved. Ucx negative however was on po abx for 3 days prior to presentation. spoke with Dr Jeffry Garcia who will see patient in office on (04/22) states to continue levaquin 500mg until he is evaluated in the office. 2. HTN- slightly above goal. re-start home medications at this time 3. gout- no signs of gout attack. resume 4. Hx of DM-A1c 5.8 5. DVT ppx- hep sq 6. d/c home with urology f/u this week.
[2017-04-19] MEDS ORDERED: LEVOFLOXACIN 250 MG TABLET (FP) PO STA (12:00)
--- NOTE | 2017-04-19 13:27 | DS ---
Physical Exam: LABS Last Vital Signs Temp Pulse Resp BP Pulse Ox 98.2 F 73 18 145/65 95 04/19/17 08:41 04/19/17 08:41 04/19/17 08:41 04/19/17 08:41 04/18/17 21:00 Notes 04/19/17 01:40 Nurse by Katherine Garrison Pt is aao,italian speaking,oob to toilet,afebrile,no c/o pain,ivf d/c,abx given, will continue to monitor. Laboratory Tests 04/17/17 04/17/17 04/17/17 06:40 09:00 09:00 WBC 11.2 H D 11.8 H RBC Hgb Hct MCV Plt Count Neutrophils % 89.6 H D 87.5 H Sodium Potassium Chloride Carbon Dioxide Anion Gap BUN Creatinine Urine Color Ltyellow Urine Appearance Clear Urine pH 5.0 Ur Specific [place] 1.015 Urine Protein Negative Urine Glucose (UA) Negative Urine Ketones Negative Urine Blood 1+ H Urine Nitrite Negative Urine Bilirubin Negative Urine Urobilinogen Negative Ur Leukocyte Esterase 2+ H Urine RBC 3 Urine WBC 64 Urine Bacteria Few Hyaline Casts 3 Urine Mucus Rare 04/18/17 04/18/17 06:55 06:55 WBC 10.8 H RBC 3.58 L Hgb 11.4 L Hct 33.8 L MCV 94.3 Plt Count 150 Neutrophils % 84.4 H Sodium 137 Potassium 3.8 Chloride 108 H Carbon Dioxide 22 Anion Gap 7 L BUN 14 D Creatinine 1.1 Urine Color Urine Appearance Urine pH Ur Specific [place] Urine Protein Urine Glucose (UA) Urine Ketones Urine Blood Urine Nitrite Urine Bilirubin Urine Urobilinogen Ur Leukocyte Esterase Urine RBC Urine WBC Urine Bacteria Hyaline Casts Urine Mucus Laboratory Tests 04/18/17 06:55 Hemoglobin A1c % 5.8 Urine culture negative Blood culture negative x2 CXR: Left base platelike atelectasis EKG: L axis deviation, unchanged from prior. HOSPITAL COURSE: Date of Admission:04/17/17 Date of Discharge: 04/19/17 Pre-hospital course- 71 yr old man with HTN, gout, enlarged prostate presented to the ED with fever and chills since 1 day prior to admission and SOB starting on day of admission. Of note, he underwent a prostate biopsy on (04/15) in 's office. Since then he has been having dysuria, hematuria and urinary frequency. Patient started levaquin 500 mg PO on 04/15. ED Course- He was found to be febrile to 101 F, have a lactic acid of 1.2, a UA with elevated WBC, and leukocytosis. His EKG showed NSR with no acute changes. Hospital course- Patient was started on levaquin 500 mg IV on 04/17. From 04/17-04/18 he was given IV abx. On 04/19 he was transitioned to PO abx. His blood cultures and urine culture were negative. Patient's leukocytosis and fever improved during his course. Discharge- Patient was discharged home on Levaquin 500 mg PO (04/20-04/22). He will follow up with Dr. Lopez on 04/22 to discuss if pt needs further antibiotics. Of note, patient has a history of diabetes but had been controlling his sugars with diet and exercise. His hba1c was found to be 5.1. He will follow outpt with his PCP. Minutes to complete discharge: 30 Discharge Summary Reason For Visit: SEPSIS Condition: Improved - Instructions Diet, Activity, Other Instructions: You were in the hospital due to fever, chills, and elevated heart rate. You were found to have bacteria in your urine, which we have been treating with an antibiotic. Please follow up with Dr. Lopez on 04/22. Continue to take antibiotic ( Levofloxacin 500 mg) until you are evaluated. He will determine if you should continue or stop. Please follow up with Dr. Macario in 1 week. Continue taking your home medications: -Tamsulosin 0.4 mg by mouth daily -Allopurinol 100 mg by mouth twice a day -Paxil 20 mg by mouth daily -Ambien 10 mg by mouth at night -Lotrel 5-40 mg 1 by mouth daily -Albuterol 1-2 inhalations by mouth daily if having trouble breathing -Acetaminophen 500 mg by mouth three times a day if you have fevers/pain Please drink plenty of fluids to stay hydrated. If you have any chest pain, shortness of breath, or any new symptoms please come back to the hospital immediately. Referrals: Darrius Lopez MD [Staff Physician] - Marti Macario MD [Primary Care Provider] - Disposition: HOME - Home Medications Comprehensive Discharge Medication List: Ambulatory Orders Acetaminophen [Mapap] 500 mg PO TID 04/17/17 Albuterol Sulfate [Proventil HFA Inhaler -] 1 - 2 inh PO TID 04/17/17 Allopurinol [Zyloprim -] 100 mg PO BID 04/17/17 Amlodipine Besylate/Benazepril [Lotrel 5-40 mg Capsule] 1 each PO DAILY Paroxetine HCl [Paxil] 20 mg PO DAILY 04/17/17 Tamsulosin HCl 0.4 mg PO DAILY 04/17/17 Zolpidem Tartrate [Ambien] 10 mg PO HS 04/17/17 Levofloxacin [Levaquin -] 500 mg PO DAILY #3 tablet 04/19/17 This patient is new to me today: Yes Date on this admission: 04/19/17 Emergency Visit: No Critical Care patient: No - Discharge Referral Referred to [facility] No
== END 2017-04-19 12:42 | disposition home or self-care (01) | DRG 862 ==
LOC: JER 06:19 → JERBED 10:36 → J6S 12:10
PROVIDERS: ADMIT Internal Medicine; ATTEND Internal Medicine
DX: T81.4XXA Infection following a procedure, initial encounter (principal); A41.89 Other specified sepsis; N39.0 Urinary tract infection, site not specified; I10 Essential (primary) hypertension; E11.9 Type 2 diabetes mellitus without complications; M10.9 Gout, unspecified; M41.80 Other forms of scoliosis, site unspecified; J45.909 Unspecified asthma, uncomplicated; N40.0 Benign prostatic hyperplasia without lower urinary tract symptoms; Z87.891 Personal history of nicotine dependence; Y83.8 Other surgical procedures as the cause of abnormal reaction of the patient, or of later complication, without mention of misadventure at the time of the procedure
CPT/HCPCS: 36415; 71010-TC; 80048; 80053; 81003; 81015; 82550; 82803; 83036; 83605; 84484; 85025; 85610; 85730; 86850; 86900; 86901; 87040; 87086; 93005; 93010; 99284-25; J1644

== ENCOUNTER 2018-08-09 10:36 | Emergency (ER) | payer OTHER ==
[2018-08-09 11:02] VITALS: BP 138/78; PULSE 96; TEMP 97.8; BMI 24.4
--- NOTE | 2018-08-09 11:14 | PDOC ---
History of Present Illness - General Chief Complaint: Urinary Problem Stated Complaint: Urinary Problem Time Seen by Provider: 08/09/18 10:53 - History of Present Illness Initial Comments: 08/09/18 11:11 73-year-old male with a history of hypertension (meds PRN, states his BP is usually normal but he takes a pill when it's high), asthma, gout, enlarged prostate (not on meds due to hypotension) presents to the emergency department with urinary retention since last night. Patient reports he has only been able to void a few drops every few hours and is in a considerable amount of pain at this time. Has never had urinary retention in the past. Denies history of a large prostate. Denies history of urinary tract infections and denies recent dysuria, frequency or urgency otherwise. Denies back pain, trauma. Is able to feel toilet paper when he wipes. Denies fevers or chills. Denies nausea, vomiting, diarrhea. Denies chest pain, shortness of breath. Denies headaches, focal weakness or numbness. Past History - Past Medical History Allergies/Adverse Reactions: Allergies Allergy/AdvReac Type Severity Reaction Status Date / Time No Known Allergies Allergy Verified 08/09/18 10:49 Home Medications: Ambulatory Orders Acetaminophen [Mapap] 500 mg PO TID 04/17/17 Albuterol Sulfate [Proventil HFA Inhaler -] 1 - 2 inh PO TID 04/17/17 Allopurinol [Zyloprim -] 100 mg PO BID 04/17/17 Amlodipine Besylate/Benazepril [Lotrel 5-40 mg Capsule] 1 each PO DAILY Naproxen [Naprosyn -] 500 mg PO BID 08/09/18 Anemia: No Asthma: Yes Cancer: No Cardiac Disorders: No CVA: No COPD: No CHF: No Dementia: No Diabetes: Yes GI Disorders: No Disorders: Yes (Prostate) HTN: Yes Hypercholesterolemia: No Liver Disease: No Seizures: No Thyroid Disease: No - Surgical History Abdominal Surgery: No Appendectomy: No Cardiac Surgery: No Cholecystectomy: No Lung Surgery: No Neurologic Surgery: No Orthopedic Surgery: Yes (pt states "I had 2 back surgeries in 1959, but doesn't remember what type") - Immunization History Immunization Up to Date: Yes - Suicide/Smoking/Psychosocial Hx Smoking Status: No Smoking History: Unknown if ever smoked Years of Tobacco Use: 50 Have you smoked in the past 12 months: No Number of Cigarettes Smoked Daily: 0 If you are a former smoker, when did you quit?: n Hx Alcohol Use: No Drug/Substance Use Hx: No Substance Use Type: None Review of Systems - Review of Systems Comments:: 08/09/18 11:12 GENERAL/CONSTITUTIONAL: No fever or chills. No weakness. HEAD, EYES, EARS, NOSE AND THROAT: No change in vision. No ear pain or discharge. No sore throat. GASTROINTESTINAL: No nausea, vomiting, diarrhea or constipation. GENITOURINARY: No dysuria, frequency. +difficulty urinating CARDIOVASCULAR: No chest pain or shortness of breath. RESPIRATORY: No cough, wheezing, or hemoptysis. MUSCULOSKELETAL: No joint or muscle swelling or pain. No neck or back pain. SKIN: No rash NEUROLOGIC: No headache, vertigo, loss of consciousness, or change in strength/ sensation. ENDOCRINE: No increased thirst. No abnormal weight change. HEMATOLOGIC/LYMPHATIC: No anemia, easy bleeding, or history of blood clots. ALLERGIC/IMMUNOLOGIC: No hives or skin allergy. *Physical Exam - Vital Signs Last Vital Signs Temp Pulse Resp BP Pulse Ox 97.8 F 96 H 26 H 138/78 96 08/09/18 10:37 08/09/18 10:37 08/09/18 10:37 08/09/18 10:37 08/09/18 10:37 - Physical Exam Comments: 08/09/18 11:13 GENERAL: Awake, alert, and fully oriented, appears uncomfortable but in no acute distress EYES: PERRLA, EOMI, sclera anicteric, conjunctiva clear ENT: Auricles normal inspection, hearing grossly normal, nares patent, oropharynx clear without exudates. Moist mucosa NECK: Normal ROM, supple, no lymphadenopathy, JVD, or masses LUNGS: Breath sounds equal, clear to auscultation bilaterally. No wheezes, and no crackles HEART: Regular rate and rhythm, normal S1 and S2, no murmurs, rubs or gallops ABDOMEN: +abd distention, no CVAT EXTREMITIES: Normal range of motion, no edema. No erythema, or tenderness NEUROLOGICAL: Normal speech, cranial nerves intact, 5/5 strength in all 4 extremities, normal sensation to light touch in all 4 extremities, normal cerebellar exam, normal gait, normal tone SKIN: Warm, Dry, normal turgor, no rashes or lesions noted. ED Treatment Course - LABORATORY CBC & Chemistry Diagram: 08/09/18 11:55 08/09/18 11:55 Medical Decision Making - Medical Decision Making 08/09/18 11:20 73yo M presents to the ED with urinary retention. No signs of infection and no other sxs of cauda equina. Pt states he has been diagnosed with an enlarged prostate but his blood pressure drops too low when he takes the medication so Dr. Jeffry Cid took him off the medications. Pt attempted to void during evaluation, only able to produce a few drops of urine. Bedside sono with PVR of approx 830cc's. WIll place de [place] torre, check UA, UCx 08/09/18 13:13 Labs wnl UA not concerning for infection Retention likely due to enlarged prostate Leg bag placed Urology referral to his urologist Dr. Jeffry Cid provided Stable for DC home I discussed the physical exam findings, ancillary test results and final diagnoses with the patient. I answered all of the patient's questions. The patient was satisfied with the care received and felt comfortable with the discharge plan and treatment plan. The patient will call their primary care physician within 24 hours to arrange follow-up and will return to the Emergency Department with any new, persistent or worsening symptoms. *DC/Admit/Observation/Transfer Diagnosis at time of Disposition: Urinary retention - Discharge Dispostion Disposition: HOME Condition at time of disposition: Improved Decision to Admit order: No - Referrals Referrals: Darrius Lopez MD [Staff Physician] - - Patient Instructions Printed Discharge Instructions: How to Care for Your De [place]re Catheter -- Male, DI for Urinary Retention in Men Additional Instructions: As discussed, follow up with Dr. Morley within 1-2 days Follow up with your primary care doctor within 1-3 days Return to the emergency department if you have any new, worsening, or concerning symptoms - Post Discharge Activity - Attestations Physician Attestion: 08/09/18 13:16 I, Dr. Sissy Sanchez MD, attest that this document has been prepared under my direction and personally reviewed by me in its entirety. I further attest, that it accurately reflects all work, treatment, procedures and medical decision -making performed by me.
[2018-08-09 11:43] LABS: URINE APPEARANCE CLEAR; URINE BILIRUBIN NEGATIVE (<2.0 mg/dL); URINE COLOR STRAW; URINE GLUCOSE (UA) NEGATIVE (NEGATIVE); URINE KETONE NEGATIVE (NEGATIVE); URINE LEUK ESTERASE NEGATIVE (NEGATIVE); URINE NITRITE NEGATIVE (NEGATIVE); URINE PROTEIN NEGATIVE (NEGATIVE); URINE UROBILINOGEN NEGATIVE mg/dL (0.2-1.0)
[2018-08-09 11:57] LABS: URINE BACTERIA RARE /hpf (NONE SEEN); URINE HYALINE CAST 1 /lpf; URINE MUCUS RARE
[2018-08-09 12:41] LABS: BASO % 0.6 % (0-2.0); EOS % 8.7 % (0-4.5); HEMATOCRIT 32.8 % (35.4-49); HEMOGLOBIN 10.8 GM/dL (11.7-16.9); LYMPH % 9.1 % (8-40); MCH 30.2 pg (25.7-33.7); MCHC 32.8 g/dl (32.0-35.9); MEAN PLT VOLUME 7.3 fl (7.5-11.1); MONO % 8.6 % (3.8-10.2); PLATELET COUNT 256 K/MM3 (134-434); RBC 3.57 M/mm3 (4.00-5.60); RDW 13.3 % (11.9-15.9); WHITE BLOOD COUNT 4.2 K/mm3 (4.0-10.0)
[2018-08-09 13:05] LABS: ANION GAP 5 MMOL/L (8-16); BLOOD UREA NITROGEN 16 mg/dL (7-18); CALCIUM 8.7 mg/dL (8.5-10.1); CHLORIDE 108 mmol/L (98-107); CO2 25 mmol/L (21-32); CREATININE 1.1 mg/dL (0.55-1.3); GLUCOSE,RANDOM 101 mg/dL (74-106); POTASSIUM 4.1 mmol/L (3.5-5.1); SODIUM 137 mmol/L (136-145)
== END 2018-08-09 13:36 | disposition home or self-care (01) ==
LOC: JER 10:36
PROC: 0T9B70Z Drainage of Bladder with Drainage Device, Via Natural or Artificial Opening (ICD-10-PCS; principal; 2018-08-09)
PROC: BT40ZZZ Ultrasonography of Bladder (ICD-10-PCS; 2018-08-09)
DX: N40.1 Benign prostatic hyperplasia with lower urinary tract symptoms (principal); R33.8 Other retention of urine; I10 Essential (primary) hypertension; J45.909 Unspecified asthma, uncomplicated; M10.9 Gout, unspecified
CPT/HCPCS: 36415; 51702; 76857-TC; 80048; 81003; 81015; 85025; 87086; 99283-25

== ENCOUNTER 2018-08-14 19:48 | Inpatient (IN) | payer OTHER ==
[2018-08-14] MEDS ORDERED: SODIUM CHLORIDE 2,245 ML IV ONE (20:39)
[2018-08-14 21:06] LABS: BASO % 0.1 % (0-2.0); EOS % 0.2 % (0-4.5); LYMPH % 3.4 % (8-40); MCH 30.7 pg (25.7-33.7); MCHC 33.2 g/dl (32.0-35.9); MEAN CELL VOLUME 92.2 fl (80-96); MEAN PLT VOLUME 7.9 fl (7.5-11.1); MONO % 6.1 % (3.8-10.2); NEUT % 90.2 % (42.8-82.8); PLATELET COUNT 212 K/MM3 (134-434); RBC 3.58 M/mm3 (4.00-5.60); RDW 13.4 % (11.9-15.9)
[2018-08-14 21:14] LABS: VENOUS PC02 35.3 mmHg (38-52); VENOUS PH 7.38 (7.32-7.42); VENOUS PO2 38.4 mmHg (28-48)
[2018-08-14 21:15] LABS: URINE APPEARANCE CLOUDY; URINE BILIRUBIN NEGATIVE (<2.0 mg/dL); URINE COLOR YELLOW; URINE GLUCOSE (UA) NEGATIVE (NEGATIVE); URINE KETONE TRACE (NEGATIVE); URINE LEUK ESTERASE 3+ (NEGATIVE); URINE NITRITE POSITIVE (NEGATIVE); URINE PROTEIN 2+ (NEGATIVE); URINE UROBILINOGEN NEGATIVE mg/dL (0.2-1.0)
[2018-08-14] MEDS ORDERED: ACETAMINOPHEN 325 MG TABLET (FP) PO ONE (21:16)
[2018-08-14 21:18] LABS: INR 1.39 (0.83-1.09); PROTHROMBIN TIME (PATIENT) 16.5 SEC (9.7-13.0)
[2018-08-14 21:20] LABS: ACTIVATED PTT 27.1 SECONDS (25.2-36.5)
[2018-08-14] MEDS ORDERED: ACETAMINOPHEN 325 MG TABLET (FP) ONE (21:28)
[2018-08-14 21:29] LABS: ALBUMIN 3.1 g/dl (3.4-5.0); ALK PHOS 112 U/L (45-117); ANION GAP 9 MMOL/L (8-16); BILIRUBIN,TOTAL 0.9 mg/dL (0.2-1); BLOOD UREA NITROGEN 23 mg/dL (7-18); CHLORIDE 107 mmol/L (98-107); CO2 19 mmol/L (21-32); CREATININE 1.3 mg/dL (0.55-1.3); GLUCOSE,RANDOM 107 mg/dL (74-106); POTASSIUM 3.8 mmol/L (3.5-5.1); SGOT/AST 12 U/L (15-37); SGPT/ALT 12 U/L (13-61); SODIUM 136 mmol/L (136-145); TOT PROT 7.5 g/dl (6.4-8.2)
--- NOTE | 2018-08-14 21:29 | PDOC ---
History of Present Illness - General Chief Complaint: SIRS, Suspected/Possible Stated Complaint: UTI Time Seen by Provider: 08/14/18 20:16 History Source: Patient Exam Limitations: No Limitations - History of Present Illness Initial Comments: 08/14/18 21:21 Patient is a 73-year-old male with history of back surgery, HTN, asthma, gout, BPH, urinary retention, brought by for fever. Per patient has had decreased appetite yesterday but today has not had any by mouth intake, shaking , fever of 103.4 today - gave Tylenol at 4:40 PM. Had diarrhea 2 days ago took Pepto-Bismol now resolved. Also has had burning on urination since 08/09/18 after having a Chandler placed and that day. Patient complains of left flank pain and left lower quadrant pain, and generally feeling weak and malaised. Patient has seen urologist 2 days ago and was given Flomax and has appointment for return follow-up visit next week. PMD: does not remember the name URO: Dr. Echeverria PMHX: as above ALL: NKDA GENERAL/CONSTITUTIONAL: [No fever or chills. No weakness. No weight change.] HEAD, EYES, EARS, NOSE AND THROAT: [No change in vision. No ear pain or discharge. No sore throat.] CARDIOVASCULAR: [No chest pain or shortness of breath.] RESPIRATORY: [No cough, (+) wheezing, (-) hemoptysis.] GASTROINTESTINAL: [No nausea, vomiting, diarrhea or constipation. No rectal bleeding.] GENITOURINARY: [No dysuria, frequency, or change in urination.] MUSCULOSKELETAL: [No joint or muscle swelling or pain. No neck (+) back pain.] SKIN AND BREASTS: [No rash or easy bruising.] NEUROLOGIC: [No headache, vertigo, loss of consciousness, or loss of sensation.] PSYCHIATRIC: [No depression or anxiety.] ENDOCRINE: [No increased thirst. No abnormal weight change.] HEMATOLOGIC/LYMPHATIC: [No anemia, easy bleeding, or history of blood clots.] ALLERGIC/IMMUNOLOGIC: [No hives or skin allergy. No latex allergy.] GENERAL: [The patient is awake, alert, and fully oriented, in no acute distress. ] HEAD: [Normal with no signs of trauma.] EYES: [Pupils equal, round and reactive to light, extraocular movements intact, sclera anicteric, conjunctiva clear.] ENT: [Ears normal, nares patent, oropharynx clear without exudates. Moist mucous membranes.] NECK: [Normal range of motion, supple without lymphadenopathy, JVD, or masses.] LUNGS: [Breath sounds equal, clear to auscultation bilaterally. No wheezes, and no crackles.] HEART: [Tachycardic rate and rhythm, normal S1 and S2 without murmur, rub.] ABDOMEN: [Soft, (+) left flank tenderness, mild tenderness to the LLQ, normoactive bowel sounds. No guarding, no rebound. No masses.] EXTREMITIES: [Normal range of motion, no edema. No clubbing or cyanosis. No cords, erythema, or tenderness.] NEUROLOGICAL: [Cranial nerves II through XII grossly intact. Normal speech, normal gait.] PSYCH: [Normal mood, normal affect.] SKIN: (+) Warmth, Dry, normal turgor, no rashes or lesions noted.] Past History - Past Medical History Allergies/Adverse Reactions: Allergies Allergy/AdvReac Type Severity Reaction Status Date / Time No Known Allergies Allergy Verified 08/14/18 20:00 Home Medications: Ambulatory Orders Acetaminophen [Mapap] 500 mg PO TID 04/17/17 Albuterol Sulfate [Proventil HFA Inhaler -] 1 - 2 inh PO TID 04/17/17 Allopurinol [Zyloprim -] 100 mg PO BID 04/17/17 Amlodipine Besylate/Benazepril [Lotrel 5-40 mg Capsule] 1 each PO DAILY Naproxen [Naprosyn -] 500 mg PO BID 08/09/18 Anemia: No Asthma: Yes Cancer: No Cardiac Disorders: No CVA: No COPD: No CHF: No Dementia: No Diabetes: Yes GI Disorders: No Disorders: Yes (Prostate) HTN: Yes Hypercholesterolemia: No Liver Disease: No Seizures: No Thyroid Disease: No - Surgical History Abdominal Surgery: No Appendectomy: No Cardiac Surgery: No Cholecystectomy: No Lung Surgery: No Neurologic Surgery: No Orthopedic Surgery: Yes (pt states "I had 2 back surgeries in 1959, but doesn't remember what type") - Immunization History Immunization Up to Date: Yes - Suicide/Smoking/Psychosocial Hx Smoking Status: No Smoking History: Never smoked Years of Tobacco Use: 50 Have you smoked in the past 12 months: No Number of Cigarettes Smoked Daily: 0 If you are a former smoker, when did you quit?: n Information on smoking cessation initiated: No Hx Alcohol Use: No Drug/Substance Use Hx: No Substance Use Type: None *Physical Exam - Vital Signs Last Vital Signs Temp Pulse Resp BP Pulse Ox 101.1 F H 125 H 22 H 159/65 96 08/14/18 20:00 08/14/18 20:00 08/14/18 20:00 08/14/18 20:00 08/14/18 20:00 ED Treatment Course - LABORATORY CBC & Chemistry Diagram: 08/14/18 20:53 08/14/18 20:53 - ADDITIONAL ORDERS Additional order review: Laboratory Results 08/14/18 08/14/18 08/14/18 20:53 20:53 20:53 PT with INR 16.50 H INR 1.39 H PTT (Actin FS) 27.1 VBG pH 7.38 POC VBG pCO2 35.3 L POC VBG pO2 38.4 Mixed VBG HCO3 20.6 Urine Color Yellow Urine Appearance Cloudy Urine pH 5.0 Ur Specific [place] 1.023 Urine Protein 2+ H Urine Glucose (UA) Negative Urine Ketones Trace H Urine Blood 3+ H Urine Nitrite Positive Urine Bilirubin Negative Urine Urobilinogen Negative Ur Leukocyte Esterase 3+ H 08/14/18 20:53 RBC 3.58 L MCV 92.2 MCHC 33.2 RDW 13.4 MPV 7.9 Neutrophils % 90.2 H Lymphocytes % 3.4 L D Monocytes % 6.1 Eosinophils % 0.2 D Basophils % 0.1 - RADIOLOGY Radiology Studies Ordered: Category Date Time Status CHEST X-RAY PORTABLE* [RAD] Stat Radiology 08/14/18 20:39 Ordered Medical Decision Making - Medical Decision Making 08/14/18 21:48 08/14/18 21:21 Patient is a 73-year-old male with history of HTN, asthma, gout, BPH, urinary retention, brought by for fever, with decreased appetite, flank pain, shaking chills presumed septic. Will get a septic workup and antibiotics, IV fluids, Tylenol possible admit. 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 No bladder calculi. Unremarkable pancreas and gallbladder. No bowel obstruction, colitis, free fluid or free air. Normal appendix. Diverticulosis colon without acute diverticulitis. Small umbilical and left inguinal region hernias containing fat. Chandler catheter in decompressed bladder. Minimal perivesical fat stranding, correlate clinically for possible cystitis. Enlarged prostate. 5 cm septated bulla right lower lobe. Levoscoliosis thoracolumbar spine. One or more of the following dose reduction techniques were used: automated exposure control, adjustment of the mA and/or kV according to patient size, use of iterative reconstructive technique. THIS DOCUMENT HAS BEEN ELECTRONICALLY SIGNED Bambi Saldivar M.D. 08/14/2018 23:21 KLAUDIA Cortes. Please call Imaging Marketing Clerk [phone] ([phone]) with questions. INTERPRETING RADIOLOGIST: Bambi Saldivar MD Electronically Signed: Aug 14, 2018 11:21PM EST *DC/Admit/Observation/Transfer Diagnosis at time of Disposition: Chandler catheter in place Sepsis Qualifiers: Sepsis type: sepsis due to unspecified organism Qualified Code(s): A41.9 - Sepsis, unspecified organism UTI (urinary tract infection) Qualifiers: Urinary tract infection type: site unspecified Hematuria presence: without hematuria Qualified Code(s): N39.0 - Urinary tract infection, site not specified - Discharge Dispostion Condition at time of disposition: Good Decision to Admit order: Yes - Referrals - Patient Instructions - Post Discharge Activity
[2018-08-14] MEDS ORDERED: CEFTRIAXONE 1,000 MG in DEXTROSE 5%-WATER - 50 ML IVPB ONE (21:35)
[2018-08-14 21:42] LABS: EPI CELLS RARE /HPF (FEW); URINE BACTERIA MANY /hpf (NONE SEEN); URINE MUCUS MODERATE
[2018-08-14] MEDS ORDERED: CEFTRIAXONE 1 GM/50 ML BAG ONE (21:53)
[2018-08-15] MEDS ORDERED: IBUPROFEN 600 MG TABLET (FP) PO ONE ×2 (00:07)
[2018-08-15 00:52] VITALS: BMI 31.1
[2018-08-15] MEDS: ACETAMINOPHEN 325 MG TABLET (FP) PO PRN ×2 (02:10→15:38)
--- NOTE | 2018-08-15 03:43 | PN ---
Teaching Attending Note Name of Resident: Mary Jane Pitts ATTENDING PHYSICIAN STATEMENT I saw and evaluated the patient. I reviewed the resident's note and discussed the case with the resident. I agree with the resident's findings and plan as documented. CC: dysuria SUBJECTIVE: Seen and examined; please see resident note for further information. This is a 73 y/o HM who presents to the ER with a CC of dysuria and pain around his urethra with a de la torre. He had urinary retention and was recently seen in our ER for this issue 08/09 and had a de la torre placed and was discharged home; he follows with Dr. Moreno and was planning to have the catheter removed this week; he did followup with his urologist and was placed on tamsulosin (wasn't on in the past for his BPH as there were issues with hypotension). Symptoms have been worsening for the last day and have been impacting his QOL so he chose to come to the ER for further assessment. He was found to be febrile and tachycardic; he had L flank pain when he talked to the resident but did not complain of pain in his flank to me and had negative imaging around the site of his kidneys. Had prior UTI in 2017 but this was due to instrumentation with prostate bx. 10 sys ROS done and negative aside from HPI FH asked and noncontributory PMH (DM not on meds, HTN, Asthma, Gout) and PSH reviewed Denies tobacco, drinks socially OBJECTIVE: VS, labs, imaging reviewed NAD, AAO, resting in bed, in good spirits De La Torre inserted draining clear yellow urine with somemucus in the bag. No blood. Normal external genetalia. RRR s1/2 no mgr Lungs CTAB with sym ext NT ND +BS CN2-12 wnl, no FND Labs: UA positive with 3+ blood +nitrates 3+LE many santos 148 wbc. WBC 12 with H/ H . Renal function normal; CO2 on BMP slightly low at 19. negative lactate, normal LFTs. Negative troponin. Albumin low 3.1. Imaging: Minimal verivesicular fat stranding that is residential sales representative of cystitis. Incidental finding of RLL bulla (5cm) ASSESSMENT AND PLAN: Mr. Swan presents with dysuria after de la torre insertion for urinary retention 2/ 2 BPH. He is a patient of Dr. Moreno and was planning for removal wednesday. 1) Acute Sepsis 2/2 UTI -Broad spectrum abx given and recieved 30cc/kg. Now afebrile and HDS. Lactate negative. Sepsis resolved. SIRS+Urine source. -Monitor on medicine service; does not require ICU. Never hypotensive. 2) Acute Cystitis with Hematuria (complicated UTI in male) -Positive UA, clinically infected. This UTI is NOT from instrumentation. No s/ s prostate abscess over the past year and no boggyness on CT but if persistent have a low threshold to investigate for prostitis. Either way he has never grown out organism here in the past. Ceftriaxone 1g IV QD and convert to PO when clinically appropriate. Ensure appropriate length of tx and followup cx result. 3) HTN -Hold home meds; resume when clinically stable 4) Asthma hx -No acute exacerbation. Can give PRN albuterol. Followup with PCP. 5) Gout -Continue albuterol 6) Urinary retention 2/2 BPH -continue flomax -As there were plans to remove the catheter on wednesday we should speak with his urologist. Could potentially do a trial but as specialist already working on this issue as an outpatient will ensure our plan is congruent with theirs. 7) Hematuria -likely 2/2 cystitis; monitor for resolution. 8) DM not on meds -Sugar is reasonable here; follow BMP. If high glucose place on SSI and check A1c. 9) Low Albumin -Check prealbumin as OP and consider nutritional supplementation. Full Code
--- NOTE | 2018-08-15 04:06 | HP ---
CHIEF COMPLAINT: fever and pain on urination PCP: none HISTORY OF PRESENT ILLNESS: Patient is a 73 y/o male with a history of HTN, asthma, gout, and enlarged prostate who presents for fevers and pain on urination. 13 days ago patient presented to the ED for urinary retention. A de la torre was placed and patient was sent home. Three days ago he saw his urologist and was started on Flomax. He had been taking the medication for two days when he developed fever today. He reports he has pain when he pees and he still has the de la torre in. Patient had a UTI ~4 years ago noted ot be after a prostate check. He believes they thought he may have kidney stones, but he did not. He also reports tenderness at his left flank. Patient reports he has some chest pressure that resolves with burping. He points to his mid sternum when asked where the pain is and it is non radiating. he has this feeling infrequently, he reports he does not have GERD but sometimes it occurs more when he has not had a bowel movement. Patient denies SOB, headache, dizziness, blurry vision, or diarrhea. Patient reports he has an appointment with his urologist on Wednesday for removal of the de la torre. ER course was notable for: (1) (2) (3) Recent Travel: denies PAST MEDICAL HISTORY: HTN, asthma, gout, enlarged prostate PAST SURGICAL HISTORY: scoliosis Social History: Smoking: denies Alcohol: denies Drugs: denies Family History: Allergies motrin- causes him to have trouble breathing HOME MEDICATIONS: Home Medications Medication Instructions Recorded Acetaminophen [Mapap] 500 mg PO TID 04/17/17 Albuterol Sulfate [Proventil HFA 1 - 2 inh PO TID 04/17/17 Inhaler -] Allopurinol [Zyloprim -] 100 mg PO BID 04/17/17 Amlodipine Besylate/Benazepril 1 each PO DAILY 04/17/17 [Lotrel 5-40 mg Capsule] Naproxen [Naprosyn -] 500 mg PO BID 08/09/18 REVIEW OF SYSTEMS CONSTITUTIONAL: fever Absent: chills, diaphoresis, generalized weakness, malaise, loss of appetite, weight change HEENT: Absent: rhinorrhea, nasal congestion, throat pain, throat swelling, difficulty swallowing, mouth swelling, ear pain, eye pain, visual changes CARDIOVASCULAR: Absent: chest pain, syncope, palpitations, irregular heart rate, lightheadedness , peripheral edema RESPIRATORY: Absent: cough, shortness of breath, dyspnea with exertion, orthopnea, wheezing, stridor, hemoptysis GASTROINTESTINAL: Absent: abdominal pain, abdominal distension, nausea, vomiting, diarrhea, constipation, melena, hematochezia GENITOURINARY: dysuria Absent: frequency, urgency, hesitancy, hematuria, flank pain, genital pain MUSCULOSKELETAL: Absent: myalgia, arthralgia, joint swelling, back pain, neck pain SKIN: Absent: rash, itching, pallor HEMATOLOGIC/IMMUNOLOGIC: Absent: easy bleeding, easy bruising, lymphadenopathy, frequent infections ENDOCRINE: Absent: unexplained weight gain, unexplained weight loss, heat intolerance, cold intolerance NEUROLOGIC: Absent: headache, focal weakness or paresthesias, dizziness, unsteady gait, seizure, mental status changes, bladder or bowel incontinence PSYCHIATRIC: Absent: anxiety, depression, suicidal or homicidal ideation, hallucinations. PHYSICAL EXAMINATION Vital Signs - 24 hr 08/14/18 08/15/18 08/15/18 20:00 00:08 00:11 Temperature 101.1 F H 101.6 F H Pulse Rate 125 H Pulse Rate [ 94 H Right Apical] Respiratory 22 H 19 Rate Blood Pressure 159/65 Blood Pressure 122/53 L [Right Arm] O2 Sat by Pulse 96 99 98 Oximetry (%) 08/15/18 00:30 Temperature 100.1 F H Pulse Rate 99 H Pulse Rate [ Right Apical] Respiratory 18 Rate Blood Pressure 146/70 Blood Pressure [Right Arm] O2 Sat by Pulse 97 Oximetry (%) GENERAL: Awake, alert, and fully oriented, in no acute distress. HEAD: Normal with no signs of trauma. EYES: Pupils equal, round and reactive to light, extraocular movements intact No lid lag. EARS, NOSE, THROAT: Moist mucous membranes. LUNGS: Breath sounds equal, clear to auscultation bilaterally. No wheezes, and no crackles. No accessory muscle use. HEART: Regular rate and rhythm, normal S1 and S2 without murmur, rub or gallop. ABDOMEN: Soft, nontender, not distended, normoactive bowel sounds, no guarding, no rebound, no masses. No hepatomegaly or splenomegaly. MUSCULOSKELETAL: positive CVA tenderness on the left side LOWER EXTREMITIES: 2+ pulses, warm, well-perfused. No peripheral edema. de la torre bag on left leg NEUROLOGICAL: Cranial nerves II-XII intact. Normal speech. PSYCHIATRIC: Cooperative. Good eye contact. Appropriate mood and affect. SKIN: Warm, dry, normal turgor, no rashes or lesions noted, normal capillary refill. Laboratory Results - last 24 hr CBC, BMP 08/14/18 20:53 08/14/18 20:53 Urine Test Results Urine Color Yellow 08/14/18 20:53 Urine Appearance Cloudy 08/14/18 20:53 Urine pH 5.0 (5.0-8.0) 08/14/18 20:53 Ur Specific [place] 1.023 (1.010-1.035) 08/14/18 20:53 Urine Protein 2+ (NEGATIVE) H 08/14/18 20:53 Urine Glucose (UA) Negative (NEGATIVE) 08/14/18 20:53 Urine Ketones Trace (NEGATIVE) H 08/14/18 20:53 Urine Blood 3+ (NEGATIVE) H 08/14/18 20:53 Urine Nitrite Positive (NEGATIVE) 08/14/18 20:53 Urine Bilirubin Negative (<2.0 mg/dL) 08/14/18 20:53 Ur Leukocyte Esterase 3+ (NEGATIVE) H 08/14/18 20:53 Ur Epithelial Cells Rare /HPF (FEW) 08/14/18 20:53 Urine Bacteria Many /hpf (NONE SEEN) 08/14/18 20:53 Urine Mucus Moderate 08/14/18 20:53 ASSESSMENT/PLAN: Patient is a 73 y/o male with a history of HTN, asthma, gout, and enlarged prostate who presents for fevers and pain on urination. #sepsis 2/2 to complicated UTI with pyelonephritis - UA: 3 + LE: 148 WBC - f/u UCX and Blood cx - received Ceftriaxone 1 gm in ED - 30 cc/kg NS - 650 mg tylenol prn - continue Ceftriaxone 1 gm daily - f/u Urology consult, patients primary is Dr. Lopez #HTN - hold antihypertensives - resume medications when patient medically stable #asthma - currently stable #DM - no longer on medication, last A1C 04/03: 5.8 Visit type - Emergency Visit Emergency Visit: Yes ED Registration Date: 08/14/18 Care time: The patient presented to the Emergency Department on the above date and was hospitalized for further evaluation of their emergent condition. - New Patient This patient is new to me today: Yes Date on this admission: 08/15/18 - Critical Care Critical Care patient: No
[2018-08-15] MEDS: HEPARIN NA (PORCINE) 5,000 UNITS/ML 1ML VIAL SQ SCH ×3 (06:32→21:35)
--- NOTE | 2018-08-15 10:30 | CONSULT ---
Consult - text type - Consultation Consultation Note: CC: UTI HPI: Patient is a 73 year old male with history of bph and acute urinary retention. The patient presented to the ER with a low grade fever. The patient denies nausea, vomiting, or gross hematuria. The patient feels significantly better after rocephin. PE vss; afeb abd-soft, nontender; no CVAT; no palpable bladder genitalia-nl phallus and testes; de la torre draining clear urine rectal-3+ prostate without fluctuance imp bph uti urinary retention plan urologically cleared for d/c on po antibiotics; would suggest macrobid 100 mg bid x 7 days will follow-up with patient this week 20 minutes devoted to patient care
[2018-08-15 10:43] LABS: BASO % 0.1 % (0-2.0); EOS % 0.4 % (0-4.5); HEMATOCRIT 31.9 % (35.4-49); HEMOGLOBIN 10.2 GM/dL (11.7-16.9); LYMPH % 6.3 % (8-40); MCH 29.5 pg (25.7-33.7); MCHC 31.9 g/dl (32.0-35.9); MEAN CELL VOLUME 92.5 fl (80-96); MEAN PLT VOLUME 7.7 fl (7.5-11.1); MONO % 6.7 % (3.8-10.2); NEUT % 86.5 % (42.8-82.8); PLATELET COUNT 203 K/MM3 (134-434); RBC 3.44 M/mm3 (4.00-5.60); RDW 13.4 % (11.9-15.9); WHITE BLOOD COUNT 14.4 K/mm3 (4.0-10.0)
[2018-08-15 11:11] LABS: ALBUMIN 2.7 g/dl (3.4-5.0); ALK PHOS 104 U/L (45-117); ANION GAP 9 MMOL/L (8-16); BILIRUBIN,TOTAL 0.4 mg/dL (0.2-1); BLOOD UREA NITROGEN 16 mg/dL (7-18); CALCIUM 8.1 mg/dL (8.5-10.1); CHLORIDE 107 mmol/L (98-107); CO2 21 mmol/L (21-32); CREATININE 1.1 mg/dL (0.55-1.3); GLUCOSE,RANDOM 117 mg/dL (74-106); POTASSIUM 3.9 mmol/L (3.5-5.1); SGOT/AST 10 U/L (15-37); SGPT/ALT 12 U/L (13-61); SODIUM 137 mmol/L (136-145); TOT PROT 6.7 g/dl (6.4-8.2)
--- NOTE | 2018-08-15 13:59 | PN ---
Physical Exam: SUBJECTIVE: Patient seen and examined at bedside. patient is still having complaints of burning on urination and is having left sided flank pain. he has also had 2-3 episodes of diarrhea today. he denies any CP/SOB/N/v OBJECTIVE: Vital Signs Period Temp Pulse Resp BP Sys/[place] Pulse Ox Last 24 Hr 99.0 F-101.6 F 79-125 18-22 99-159/53-70 96-99 GENERAL: The patient is awake, alert, and fully oriented, in no acute distress EYES:no scleral icterus . NECK: no JVD, no lymphadenopathy LUNGS:CTA B/L; no rales, rhonchi or wheezing. HEART: Regular rate and rhythm, S1, S2 without murmur, rub or gallop. ABDOMEN: Soft, nontender, nondistended, normoactive bowel sounds, no guarding, no rebound, no hepatosplenomegaly, no masses. MUSCULOSKELETAL: + left sided CVAT EXTREMITIES: 2+ pulses, warm, well-perfused, no edema. PSYCH: Normal mood, normal affect. SKIN: Warm, dry, normal turgor, no rashes or lesions noted Laboratory Results - last 24 hr 08/14/18 08/14/18 08/14/18 20:53 20:53 20:53 WBC 12.0 H RBC 3.58 L Hgb 11.0 L Hct 33.0 L MCV 92.2 MCH 30.7 MCHC 33.2 RDW 13.4 Plt Count 212 MPV 7.9 Absolute Neuts (auto) 10.8 H Neutrophils % 90.2 H Lymphocytes % 3.4 L D Monocytes % 6.1 Eosinophils % 0.2 D Basophils % 0.1 Nucleated RBC % 0 PT with INR 16.50 H INR 1.39 H PTT (Actin FS) 27.1 VBG pH POC VBG pCO2 POC VBG pO2 Mixed VBG HCO3 Sodium Potassium Chloride Carbon Dioxide Anion Gap BUN Creatinine Creat Clearance w eGFR Random Glucose Lactic Acid Calcium Total Bilirubin AST ALT Alkaline Phosphatase Troponin I Total Protein Albumin Urine Color Yellow Urine Appearance Cloudy Urine pH 5.0 Ur Specific [place] 1.023 Urine Protein 2+ H Urine Glucose (UA) Negative Urine Ketones Trace H Urine Blood 3+ H Urine Nitrite Positive Urine Bilirubin Negative Urine Urobilinogen Negative Ur Leukocyte Esterase 3+ H Urine WBC (Auto) 148 Urine RBC (Auto) 61 Ur Epithelial Cells Rare Urine Bacteria Many Urine Mucus Moderate 08/14/18 08/14/18 08/14/18 20:53 20:53 20:53 WBC RBC Hgb Hct MCV MCH MCHC RDW Plt Count MPV Absolute Neuts (auto) Neutrophils % Lymphocytes % Monocytes % Eosinophils % Basophils % Nucleated RBC % PT with INR INR PTT (Actin FS) VBG pH 7.38 POC VBG pCO2 35.3 L POC VBG pO2 38.4 Mixed VBG HCO3 20.6 Sodium 136 Potassium 3.8 Chloride 107 Carbon Dioxide 19 L Anion Gap 9 BUN 23 H Creatinine 1.3 Creat Clearance w eGFR 53.82 Random Glucose 107 H Lactic Acid 1.1 Calcium 8.0 L Total Bilirubin 0.9 AST 12 L ALT 12 L Alkaline Phosphatase 112 Troponin I Total Protein 7.5 Albumin 3.1 L Urine Color Urine Appearance Urine pH Ur Specific [place] Urine Protein Urine Glucose (UA) Urine Ketones Urine Blood Urine Nitrite Urine Bilirubin Urine Urobilinogen Ur Leukocyte Esterase Urine WBC (Auto) Urine RBC (Auto) Ur Epithelial Cells Urine Bacteria Urine Mucus 08/14/18 08/15/18 08/15/18 20:53 10:18 10:18 WBC 14.4 H RBC 3.44 L Hgb 10.2 L Hct 31.9 L MCV 92.5 MCH 29.5 MCHC 31.9 L RDW 13.4 Plt Count 203 MPV 7.7 Absolute Neuts (auto) 12.4 H Neutrophils % 86.5 H Lymphocytes % 6.3 L D Monocytes % 6.7 Eosinophils % 0.4 D Basophils % 0.1 Nucleated RBC % 0 PT with INR INR PTT (Actin FS) VBG pH POC VBG pCO2 POC VBG pO2 Mixed VBG HCO3 Sodium 137 Potassium 3.9 Chloride 107 Carbon Dioxide 21 Anion Gap 9 BUN 16 Creatinine 1.1 Creat Clearance w eGFR > 60 Random Glucose 117 H Lactic Acid Calcium 8.1 L Total Bilirubin 0.4 AST 10 L ALT 12 L Alkaline Phosphatase 104 Troponin I < 0.02 Total Protein 6.7 Albumin 2.7 L Urine Color Urine Appearance Urine pH Ur Specific [place] Urine Protein Urine Glucose (UA) Urine Ketones Urine Blood Urine Nitrite Urine Bilirubin Urine Urobilinogen Ur Leukocyte Esterase Urine WBC (Auto) Urine RBC (Auto) Ur Epithelial Cells Urine Bacteria Urine Mucus Active Medications Generic Name Dose Route Start Last Admin Trade Name Freq PRN Reason Stop Dose Admin Acetaminophen 650 mg 08/15/18 01:26 08/15/18 02:10 Tylenol - PO 650 mg Q4H PRN Administration FEVER Heparin Sodium (Porcine) 5,000 unit 08/15/18 06:00 08/15/18 06:32 Heparin - SQ 5,000 unit TID LIOR Administration Ceftriaxone Sodium 1 gm/ 50 mls @ 100 mls/hr 08/15/18 18:00 Dextrose IVPB DAILY LIOR Protocol ASSESSMENT/PLAN: Patient is a 73 y/o male with a history of HTN, asthma, gout, and enlarged prostate who presents for fevers and pain on urination. #Sepsis 2/2 complicated UTI -Dr. Gerber saw patient this am; he has an appt with him this week to get de la torre removed -c/w Ceftriaxone 1gram daily -f/u urine cx -650 tylenol PRN #HTN -holding patients anti-hypertensive meds for now -monitor BP #DM -no longer on meds; ;last HBA1c was 5.8 F/E/N d/c fluid as patient is no longer septic -monitor electrolytes -diabetic diet Problem List - Problems (1) Sepsis Code(s): A41.9 - SEPSIS, UNSPECIFIED ORGANISM Qualifiers: Sepsis type: sepsis due to unspecified organism Qualified Code(s): A41.9 - Sepsis, unspecified organism (2) UTI (urinary tract infection) Code(s): N39.0 - URINARY TRACT INFECTION, SITE NOT SPECIFIED Qualifiers: Urinary tract infection type: site unspecified Hematuria presence: without hematuria Qualified Code(s): N39.0 - Urinary tract infection, site not specified Visit type - Emergency Visit Emergency Visit: Yes ED Registration Date: 08/14/18 Care time: The patient presented to the Emergency Department on the above date and was hospitalized for further evaluation of their emergent condition. - New Patient This patient is new to me today: Yes Date on this admission: 08/15/18 - Critical Care Critical Care patient: No
[2018-08-15] MEDS: LACTOBACILLUS ACIDOPHILUS 1 TABLET PO SCH (14:50)
--- NOTE | 2018-08-15 18:00 | PN ---
Teaching Attending Note Name of Resident: Debbie Anders ATTENDING PHYSICIAN STATEMENT I saw and evaluated the patient. I reviewed the resident's note and discussed the case with the resident. I agree with the resident's findings and plan as documented. SUBJECTIVE:discomfort at de la torre site. denies CP, SOB, fever, chills, N/V/C/D. states diarrhea has resolved OBJECTIVE: Last Vital Signs Temp Pulse Resp BP Pulse Ox 101.2 F H 93 H 18 145/75 97 08/15/18 14:00 08/15/18 14:00 08/15/18 14:00 08/15/18 14:00 08/15/18 09:00 General NAD CV S1 S2 RRR no murmur/rub/gallop Lungs CTA B/l no wheezing/rales/rhonchi Abdomen soft +suprapubic tenderness no rebound or guarding ASSESSMENT AND PLAN: 73yo M with PMH BPH with urinary retention with de la torre placement on 08/09 in the ER, HTN, DM and gout presented to the ER with dysuria and found to be septic due to UTI 1. Sepsis due to UTI- Tm 101.6. leukocytosis trending up. from urinary retention. will re-insert de la torre catheter. On Ceftiraxone day 2. cont IVF. would hold flomax with hypotension at this time. consider starting once BP improves. Urology on board. f/u Cx 2. Diarrhea- likely due to sepsis. already resolved. will start bacid to prevent abx assoc diarrhea and cdiff. 3. HTN- currently hypotensive. would hold antihypertensive medications at this time. re-start as needed 4. DM- hold oral agents. cont BGM and iss 5. DVT ppx- hep sq
[2018-08-15] MEDS ORDERED: DEXTROSE 5%-WATER - 50 ML IVPB ONE (18:01)
[2018-08-15] MEDS ORDERED: cefTRIAXone SODIUM 1 GM VIAL ONE (18:01)
[2018-08-15] MEDS: CEFTRIAXONE 1 GM in DEXTROSE 5%-WATER - 50 ML IVPB SCH (18:03)
--- NOTE | 2018-08-15 18:28 | EKG ---
Test Reason : Blood Pressure : / mmHG Vent. Rate : 100 BPM Atrial Rate : 100 BPM P-R Int : 118 ms QRS Dur : 074 ms QT Int : 336 ms P-R-T Axes : 034 -29 002 degrees QTc Int : 433 ms NORMAL SINUS RHYTHM NONSPECIFIC ST ABNORMALITY ABNORMAL ECG WHEN COMPARED WITH ECG OF 17-APR-2017 07:03, NO SIGNIFICANT CHANGE WAS FOUND Confirmed by TANIA BISWAS MD ([id number]) on 08/15/2018 6:28:39 PM Referred By: Confirmed By:TANIA BISWAS MD
[2018-08-15 22:00] LABS: URINE APPEARANCE CLEAR; URINE BILIRUBIN NEGATIVE (<2.0 mg/dL); URINE COLOR LTYELLOW; URINE GLUCOSE (UA) NEGATIVE (NEGATIVE); URINE KETONE NEGATIVE (NEGATIVE); URINE LEUK ESTERASE 1+ (NEGATIVE); URINE NITRITE NEGATIVE (NEGATIVE); URINE PROTEIN 1+ (NEGATIVE); URINE UROBILINOGEN NEGATIVE mg/dL (0.2-1.0)
[2018-08-15 22:03] LABS: URINE MUCUS RARE
[2018-08-16] MEDS ORDERED: traMADol HCL 50 MG TABLET PO ONE (06:21)
[2018-08-16] MEDS: HEPARIN NA (PORCINE) 5,000 UNITS/ML 1ML VIAL SQ SCH ×3 (06:41→21:00)
[2018-08-16 07:45] LABS: MAGNESIUM 1.8 mg/dL (1.8-2.4); PHOSPHOROUS 2.5 mg/dL (2.5-4.9)
[2018-08-16 08:10] LABS: BASO % 0.4 % (0-2.0); EOS % 2.1 % (0-4.5); HEMATOCRIT 29.8 % (35.4-49); HEMOGLOBIN 9.8 GM/dL (11.7-16.9); LYMPH % 7.3 % (8-40); MCH 30.3 pg (25.7-33.7); MEAN CELL VOLUME 91.8 fl (80-96); MEAN PLT VOLUME 8.2 fl (7.5-11.1); MONO % 7.7 % (3.8-10.2); NEUT % 82.5 % (42.8-82.8); PLATELET COUNT 175 K/MM3 (134-434); RBC 3.25 M/mm3 (4.00-5.60); RDW 13.6 % (11.9-15.9); WHITE BLOOD COUNT 9.8 K/mm3 (4.0-10.0)
[2018-08-16] MEDS ORDERED: cefTRIAXone SODIUM 1 GM VIAL ONE (09:32)
[2018-08-16] MEDS ORDERED: DEXTROSE 5%-WATER - 50 ML IVPB ONE (09:33)
[2018-08-16] MEDS: LACTOBACILLUS ACIDOPHILUS 1 TABLET PO SCH (09:36)
[2018-08-16] MEDS: CEFTRIAXONE 1 GM in DEXTROSE 5%-WATER - 50 ML IVPB SCH (09:36)
[2018-08-16 10:05] LABS: ALBUMIN 2.5 g/dl (3.4-5.0); ALK PHOS 95 U/L (45-117); ANION GAP 11 MMOL/L (8-16); BILIRUBIN,TOTAL 0.3 mg/dL (0.2-1); BLOOD UREA NITROGEN 10 mg/dL (7-18); CALCIUM 8.2 mg/dL (8.5-10.1); CHLORIDE 104 mmol/L (98-107); CO2 23 mmol/L (21-32); CREATININE 0.9 mg/dL (0.55-1.3); GLUCOSE,RANDOM 96 mg/dL (74-106); POTASSIUM 3.8 mmol/L (3.5-5.1); SGOT/AST 14 U/L (15-37); SGPT/ALT 15 U/L (13-61); SODIUM 137 mmol/L (136-145); TOT PROT 6.3 g/dl (6.4-8.2)
[2018-08-16] MEDS: ACETAMINOPHEN 325 MG TABLET (FP) PO PRN (14:11)
--- NOTE | 2018-08-16 14:35 | PN ---
Physical Exam: SUBJECTIVE: Patient seen and examined OBJECTIVE: Vital Signs Period Temp Pulse Resp BP Sys/Molina Pulse Ox Last 24 Hr 98.4 F-98.5 F 77-83 18-20 127-140/67-71 97-97 GENERAL: The patient is awake, alert, and fully oriented, in no acute distress. HEAD: Normal with no signs of trauma. EYES: PERRL, extraocular movements intact, sclera anicteric, conjunctiva clear. No ptosis. ENT: Ears normal, nares patent, oropharynx clear without exudates, moist mucous membranes. NECK: Trachea midline, full range of motion, supple. LUNGS: Breath sounds equal, clear to auscultation bilaterally, no wheezes, no crackles, no accessory muscle use. HEART: Regular rate and rhythm, S1, S2 without murmur, rub or gallop. ABDOMEN: Soft, nontender, nondistended, normoactive bowel sounds, no guarding, no rebound, no hepatosplenomegaly, no masses. EXTREMITIES: 2+ pulses, warm, well-perfused, no edema. NEUROLOGICAL: Cranial nerves II through XII grossly intact. Normal speech, gait not observed. PSYCH: Normal mood, normal affect. SKIN: Warm, dry, normal turgor, no rashes or lesions noted Laboratory Results - last 24 hr 08/15/18 08/16/18 08/16/18 21:15 06:00 06:00 WBC 9.8 RBC 3.25 L Hgb 9.8 L Hct 29.8 L MCV 91.8 MCH 30.3 MCHC 33.0 RDW 13.6 Plt Count 175 MPV 8.2 Absolute Neuts (auto) 8.1 H Neutrophils % 82.5 Lymphocytes % 7.3 L Monocytes % 7.7 Eosinophils % 2.1 D Basophils % 0.4 D Nucleated RBC % 0 Sodium 137 Potassium 3.8 Chloride 104 Carbon Dioxide 23 Anion Gap 11 BUN 10 Creatinine 0.9 Creat Clearance w eGFR > 60 Random Glucose 96 Calcium 8.2 L Phosphorus 2.5 Magnesium 1.8 Total Bilirubin 0.3 AST 14 L ALT 15 Alkaline Phosphatase 95 Total Protein 6.3 L Albumin 2.5 L Urine Color Ltyellow Urine Appearance Clear Urine pH 5.0 Ur Specific [place] 1.016 Urine Protein 1+ H Urine Glucose (UA) Negative Urine Ketones Negative Urine Blood 3+ H Urine Nitrite Negative Urine Bilirubin Negative Urine Urobilinogen Negative Ur Leukocyte Esterase 1+ H D Urine WBC (Auto) 3 Urine RBC (Auto) 31 Urine Mucus Rare Active Medications Generic Name Dose Route Start Last Admin Trade Name Sol PRN Reason Stop Dose Admin Acetaminophen 650 mg 08/15/18 01:26 08/16/18 14:11 Tylenol - PO 650 mg Q4H PRN Administration FEVER Heparin Sodium (Porcine) 5,000 unit 08/15/18 06:00 08/16/18 14:11 Heparin - SQ 5,000 unit TID LIOR Administration Ceftriaxone Sodium 1 gm/ 50 mls @ 100 mls/hr 08/15/18 18:00 08/16/18 09:36 Dextrose IVPB 100 mls/hr DAILY LIOR Administration Protocol Lactobacillus Acidophilus 1 tab 08/15/18 14:15 08/16/18 09:36 Bacid - PO 1 tab DAILY LIOR Administration Tamsulosin HCl 0.4 mg 08/16/18 22:00 Flomax - PO HS LIOR ASSESSMENT/PLAN: Patient is a 73 y/o male with a history of HTN, asthma, gout, and enlarged prostate who presents for fevers and pain on urination. #Sepsis 2/2 complicated UTI -de la torre was changed yesterday after speaking with Dr. Lopez -c/w Ceftriaxone 1gram daily -f/u urine cx; prelim is gram negative bacilli lactose fermenting -650 tylenol PRN #HTN -holding patients anti-hypertensive meds for now -monitor BP #DM -no longer on meds; ;last HBA1c was 5.8 F/E/N d/c fluid as patient is no longer septic -monitor electrolytes -diabetic diet Problem List - Problems (1) Sepsis Code(s): A41.9 - SEPSIS, UNSPECIFIED ORGANISM Qualifiers: Sepsis type: sepsis due to unspecified organism Qualified Code(s): A41.9 - Sepsis, unspecified organism (2) UTI (urinary tract infection) Code(s): N39.0 - URINARY TRACT INFECTION, SITE NOT SPECIFIED Qualifiers: Urinary tract infection type: site unspecified Hematuria presence: without hematuria Qualified Code(s): N39.0 - Urinary tract infection, site not specified Visit type - Emergency Visit Emergency Visit: Yes ED Registration Date: 08/14/18 Care time: The patient presented to the Emergency Department on the above date and was hospitalized for further evaluation of their emergent condition. - New Patient This patient is new to me today: No - Critical Care Critical Care patient: No
--- NOTE | 2018-08-16 16:03 | PN ---
Teaching Attending Note Name of Resident: Debbie Anders ATTENDING PHYSICIAN STATEMENT I saw and evaluated the patient. I reviewed the resident's note and discussed the case with the resident. I agree with the resident's findings and plan as documented with exceptions below. SUBJECTIVE: Patient seen and examined. Overall feels better, abdominal pain and urinary symptoms improved. No new concerns. OBJECTIVE: Vital Signs Period Temp Pulse Resp BP Sys/Molina Pulse Ox Last 24 Hr 98.4 F-98.5 F 77-83 17-20 120-140/60-71 97-97 Intake & Output 08/13/18 08/14/18 08/15/18 08/16/18 23:59 23:59 23:59 23:59 Intake Total 1100 300 Output Total 800 200 Balance 300 100 Weight 165 lb 124 lb 4.8 oz General: sitting in bed in no acute distress Abdomen:soft, left CVA tenderness, mild suprapubic tenderness, no voluntary or involuntary guarding or rigidity, positive bowel sounds Extremities: no edema Home Medications Medication Instructions Recorded Acetaminophen [Mapap] 500 mg PO TID 04/17/17 Albuterol Sulfate [Proventil HFA 1 - 2 inh IH TID 04/17/17 Inhaler -] Allopurinol [Zyloprim -] 100 mg PO BID 04/17/17 Amlodipine Besylate/Benazepril 1 each PO DAILY 04/17/17 [Lotrel 5-40 mg Capsule] Naproxen [Naprosyn -] 500 mg PO BID 08/09/18 Cholecalciferol (Vitamin D3) 5,000 unit PO WEEKLY 08/15/18 [Vitamin D3] Patient Specific Medications [Pt 500 ea IH BID 08/15/18 Own Med Drawer -] Tamsulosin HCl [Flomax] 0.4 mg PO DAILY 08/15/18 Zolpidem Tartrate [Ambien] 10 mg PO HS 08/15/18 Active Medications Acetaminophen (Tylenol -) 650 mg PO Q4H PRN PRN Reason: FEVER Last Admin: 08/16/18 14:11 Dose: 650 mg Heparin Sodium (Porcine) (Heparin -) 5,000 unit SQ TID LIOR Last Admin: 08/16/18 14:11 Dose: 5,000 unit Ceftriaxone Sodium 1 gm/ (Dextrose) 50 mls @ 100 mls/hr IVPB DAILY [facility]; Protocol Last Admin: 08/16/18 09:36 Dose: 100 mls/hr Lactobacillus Acidophilus (Bacid -) 1 tab PO DAILY [facility] Last Admin: 08/16/18 09:36 Dose: 1 tab Tamsulosin HCl (Flomax -) 0.4 mg PO HS [facility] Laboratory Results - last 24 hr 08/15/18 08/16/18 08/16/18 21:15 06:00 06:00 WBC 9.8 RBC 3.25 L Hgb 9.8 L Hct 29.8 L MCV 91.8 MCH 30.3 MCHC 33.0 RDW 13.6 Plt Count 175 MPV 8.2 Absolute Neuts (auto) 8.1 H Neutrophils % 82.5 Lymphocytes % 7.3 L Monocytes % 7.7 Eosinophils % 2.1 D Basophils % 0.4 D Nucleated RBC % 0 Sodium 137 Potassium 3.8 Chloride 104 Carbon Dioxide 23 Anion Gap 11 BUN 10 Creatinine 0.9 Creat Clearance w eGFR > 60 Random Glucose 96 Calcium 8.2 L Phosphorus 2.5 Magnesium 1.8 Total Bilirubin 0.3 AST 14 L ALT 15 Alkaline Phosphatase 95 Total Protein 6.3 L Albumin 2.5 L Urine Color Ltyellow Urine Appearance Clear Urine pH 5.0 Ur Specific [place] 1.016 Urine Protein 1+ H Urine Glucose (UA) Negative Urine Ketones Negative Urine Blood 3+ H Urine Nitrite Negative Urine Bilirubin Negative Urine Urobilinogen Negative Ur Leukocyte Esterase 1+ H D Urine WBC (Auto) 3 Urine RBC (Auto) 31 Urine Mucus Rare Microbiology 08/14/18 20:53 Urine - Urine [place] Urine Culture - Preliminary Lactose Fermenting Neg Bacilli 08/14/18 20:53 Blood - Peripheral Venous Blood Culture - Preliminary NO GROWTH OBTAINED AFTER 24 HOURS, INCUBATION TO CONTINUE FOR 4 DAYS. 08/14/18 20:53 Blood - Peripheral Venous Blood Culture - Preliminary NO GROWTH OBTAINED AFTER 24 HOURS, INCUBATION TO CONTINUE FOR [address] A/p results reviewed ASSESSMENT AND PLAN: 73yo M with PMH BPH with urinary retention with de la torre placement on 08/09 in the ER, HTN, DM and gout admitted with complicated UTI with sepsis and ongoing urinary retention. -Sepsis with complicated UTI/left sided pyelonephritis -Diarrhea, likely antibiotic related, resolved -BPH with urinary retention s/p de la torre placement -HTN -DM Plan: Ceftriaxone day 3, fever curve improved. Follow up urine cultures. IVF. Resume flomax, start at bedtime. Resume anti-HTN in 24 hours based on BP reading Hold oral diabetic agent. ISS, diabetic diet. dVTPPX heparin DIspo d/c in 24 hours if continues to improve Plan discussed with patient in detail, all questions answered.
[2018-08-16] MEDS ORDERED: TAMSULOSIN HCL 0.4 MG CAP PO SCH (22:00)
[2018-08-17] MEDS: HEPARIN NA (PORCINE) 5,000 UNITS/ML 1ML VIAL SQ SCH ×2 (05:23→14:25)
[2018-08-17 06:55] LABS: HEMOGLOBIN 10.1 GM/dL (11.7-16.9); MCHC 32.7 g/dl (32.0-35.9); MEAN CELL VOLUME 91.8 fl (80-96); MEAN PLT VOLUME 7.7 fl (7.5-11.1); PLATELET COUNT 188 K/MM3 (134-434); RBC 3.38 M/mm3 (4.00-5.60); RDW 13.2 % (11.9-15.9); WHITE BLOOD COUNT 5.2 K/mm3 (4.0-10.0)
[2018-08-17 07:45] LABS: ALBUMIN 2.6 g/dl (3.4-5.0); ALK PHOS 94 U/L (45-117); ANION GAP 6 MMOL/L (8-16); BILIRUBIN,TOTAL 0.3 mg/dL (0.2-1); BLOOD UREA NITROGEN 10 mg/dL (7-18); CALCIUM 8.5 mg/dL (8.5-10.1); CHLORIDE 104 mmol/L (98-107); CO2 28 mmol/L (21-32); GLUCOSE,RANDOM 96 mg/dL (74-106); POTASSIUM 3.8 mmol/L (3.5-5.1); SGOT/AST 17 U/L (15-37); SGPT/ALT 19 U/L (13-61); SODIUM 137 mmol/L (136-145); TOT PROT 6.3 g/dl (6.4-8.2)
[2018-08-17] MEDS ORDERED: DEXTROSE 5%-WATER - 50 ML IVPB ONE (10:38)
[2018-08-17] MEDS ORDERED: cefTRIAXone SODIUM 1 GM VIAL ONE (10:38)
[2018-08-17] MEDS: LACTOBACILLUS ACIDOPHILUS 1 TABLET PO SCH (10:43)
[2018-08-17] MEDS: CEFTRIAXONE 1 GM in DEXTROSE 5%-WATER - 50 ML IVPB SCH (10:47)
[2018-08-17 13:21] VITALS: BP 135/71; PULSE 93; TEMP 99.2
--- NOTE | 2018-08-17 14:40 | PN ---
Teaching Attending Note Name of Resident: Debbie Anders ATTENDING PHYSICIAN STATEMENT I saw and evaluated the patient. I reviewed the resident's note and discussed the case with the resident. I agree with the resident's findings and plan as documented with exceptions below. SUBJECTIVE: Patient seen and examined. No abdominal or back pain, doing well, eager to go home. OBJECTIVE: Vital Signs Period Temp Pulse Resp BP Sys/Molina Pulse Ox Last 24 Hr 98.1 F-99.2 F 72-93 17-20 120-141/52-77 98-98 Intake & Output 08/14/18 08/15/18 08/16/18 08/17/18 23:59 23:59 23:59 23:59 Intake Total 1100 1000 Output Total 800 1000 900 Balance 300 0 -900 Weight 165 lb 124 lb 4.8 oz 119 lb 2 oz General: sitting in bed in no acute distress Chest; CTAB, no rales or wheezing Abdomen:soft, NT,ND, no cVA tenderness Extremities: no edema Home Medications Medication Instructions Recorded RX: Acetaminophen [Mapap] 500 mg PO TID 04/17/17 RX: Albuterol Sulfate [Proventil 1 - 2 inh IH TID 04/17/17 HFA Inhaler -] RX: Allopurinol [Zyloprim -] 100 mg PO BID 04/17/17 RX: Amlodipine Besylate/Benazepril 1 each PO DAILY 04/17/17 [Lotrel 5-40 mg Capsule] RX: Cholecalciferol (Vitamin D3) 5,000 unit PO WEEKLY 08/15/18 [Vitamin D3] RX: Patient Specific Medications 500 ea IH BID 08/15/18 [Pt Own Med Drawer -] RX: Tamsulosin HCl [Flomax] 0.4 mg PO DAILY 08/15/18 RX: Zolpidem Tartrate [Ambien] 10 mg PO HS 08/15/18 Cefuroxime Axetil [Cefuroxime] 500 mg PO BID 10 Days #20 tablet 08/17/18 Laboratory Results - last 24 hr 08/17/18 08/17/18 06:00 06:00 WBC 5.2 RBC 3.38 L Hgb 10.1 L Hct 31.0 L MCV 91.8 MCH 30.0 MCHC 32.7 RDW 13.2 Plt Count 188 MPV 7.7 Sodium 137 Potassium 3.8 Chloride 104 Carbon Dioxide 28 Anion Gap 6 L BUN 10 Creatinine 1.0 Creat Clearance w eGFR > 60 Random Glucose 96 Calcium 8.5 Total Bilirubin 0.3 AST 17 ALT 19 Alkaline Phosphatase 94 Total Protein 6.3 L Albumin 2.6 L Microbiology 08/15/18 21:15 Urine - Urine - Catheterized Urine Culture - Final NO GROWTH OBTAINED 08/14/18 20:53 Urine - Urine [place] Urine Culture - Final Klebsiella Pneumoniae 08/14/18 20:53 Blood - Peripheral Venous Blood Culture - Preliminary NO GROWTH OBTAINED AFTER 48 HOURS, INCUBATION TO CONTINUE FOR 3 DAYS. 08/14/18 20:53 Blood - Peripheral Venous Blood Culture - Preliminary NO GROWTH OBTAINED AFTER 48 HOURS, INCUBATION TO CONTINUE FOR 3 DAYS. ASSESSMENT AND PLAN: 73yo M with PMH BPH with urinary retention with de la torre placement on 08/09 in the ER, HTN, DM and gout admitted with complicated UTI with sepsis and ongoing urinary retention. -Sepsis with complicated UTI/left sided pyelonephritis, likely secondary to urinary retention/BPH -Diarrhea, likely antibiotic related, resolved -BPH with urinary retention s/p de la torre placement -HTN -DM Plan: s/p 4 days of ceftriaxone, urine cultures noted. Transition to cefuroxime for additional 10 days. URology follow up with DR. Jeffry Garcia in 1week. Resume home meds with home BP monitoring. D/c home today with outpatient PCP and urology follow up. Plan discussed with patient and at bedside in detail, all questions answered.
== END 2018-08-17 16:11 | disposition home or self-care (01) | DRG 872 ==
LOC: JER 19:48 → JERBED 22:53 → J5S 08-15 00:32
PROVIDERS: ADMIT Internal Medicine; ATTEND Hospitalist
DX: A41.9 Sepsis, unspecified organism (principal); N30.01 Acute cystitis with hematuria; N10 Acute pyelonephritis; J45.909 Unspecified asthma, uncomplicated; N40.1 Benign prostatic hyperplasia with lower urinary tract symptoms; R33.8 Other retention of urine; M10.9 Gout, unspecified; E11.9 Type 2 diabetes mellitus without complications; R19.7 Diarrhea, unspecified; B96.1 Klebsiella pneumoniae [K. pneumoniae] as the cause of diseases classified elsewhere
CPT/HCPCS: 36415; 71045-TC-FY; 74176-TC; 80053; 81003; 81015; 82803; 83605; 83735; 84100; 84484; 85025; 85027; 85610; 85730; 87040; 87086; 87186; 93005; 93010; 99284-25; J1644; J7030

== ENCOUNTER 2018-08-25 20:58 | Emergency (ER) | payer OTHER ==
[2018-08-25 21:14] VITALS: BP 135/57; PULSE 82; TEMP 98.5
--- NOTE | 2018-08-25 21:23 | PDOC ---
History of Present Illness - General Chief Complaint: Urinary Problem Stated Complaint: URINARY PROBLEM Time Seen by Provider: 08/25/18 21:09 History Source: Patient Exam Limitations: No Limitations - History of Present Illness Travel History: No Initial Comments: 08/25/18 21:21 73y M hx of asthma, htn, gout, bph presents with complaint of urinary retention. Patient was recently seen in the emergency department for urinary retention and diagnosed with UTI. Briefly admitted in the hospital for UTI and then dc. Was doing well until thi smorning, was found to have some hematuria this AM. Went to his urologist and had his de la torre removed approx 2pm. Pt has been unable to urinate since then. Pt denies any toy abd pain but notes it hurts when he tries to urinate. denies any fever/chills, n/v, cp, sob, back pain. Urology: Dr. Borja Past History - Past Medical History Allergies/Adverse Reactions: Allergies Allergy/AdvReac Type Severity Reaction Status Date / Time ibuprofen [From Motrin] Allergy Mild Verified 08/25/18 21:05 Home Medications: Ambulatory Orders Acetaminophen [Mapap] 500 mg PO TID 04/17/17 Albuterol Sulfate [Proventil HFA Inhaler -] 1 - 2 inh IH TID 04/17/17 Allopurinol [Zyloprim -] 100 mg PO BID 04/17/17 Amlodipine Besylate/Benazepril [Lotrel 5-40 mg Capsule] 1 each PO DAILY Cholecalciferol (Vitamin D3) [Vitamin D3] 5,000 unit PO WEEKLY 08/15/18 Patient Specific Medications [Pt Own Med Drawer -] 500 ea IH BID 08/15/18 Tamsulosin HCl [Flomax] 0.4 mg PO DAILY 08/15/18 Zolpidem Tartrate [Ambien] 10 mg PO HS 08/15/18 Cefuroxime Axetil [Cefuroxime] 500 mg PO BID 10 Days #20 tablet 08/17/18 Anemia: No Asthma: Yes Cancer: No Cardiac Disorders: No CVA: No COPD: No CHF: No Dementia: No Diabetes: Yes GI Disorders: No Disorders: Yes (Prostate) HTN: Yes Hypercholesterolemia: No Liver Disease: No Seizures: No Thyroid Disease: No - Surgical History Abdominal Surgery: No Appendectomy: No Cardiac Surgery: No Cholecystectomy: No Lung Surgery: No Neurologic Surgery: No Orthopedic Surgery: Yes (pt states "I had 2 back surgeries in 1959, but doesn't remember what type") - Immunization History Immunization Up to Date: Yes - Suicide/Smoking/Psychosocial Hx Smoking Status: No Smoking History: Never smoked Years of Tobacco Use: 50 Have you smoked in the past 12 months: No Number of Cigarettes Smoked Daily: 0 If you are a former smoker, when did you quit?: n Information on smoking cessation initiated: No Hx Alcohol Use: No Drug/Substance Use Hx: No Substance Use Type: None Hx Substance Use Treatment: No Review of Systems - Review of Systems Able to Perform ROS?: Yes Comments:: 08/25/18 22:00 Constitutional - no reported Fever, Chills, HEENT: no reported vision changes, sore throat Respiratory: no reported cough, sob, hemoptysis Cardiac: no reported chest pain, palpitations, light headedness, leg swelling Abd/GI: +urinary retuention no reported abd pain, nausea, vomiting, blood per rectum, melena, diarrhea : no reported dysuria, frequency, discharge Musculskelatal - no reported back pain, joint swelling skin - no reported bruising, erythema, rash neurological: no reported headache, numbness, focal weakness, tingling, ataxia, hematologic: no reported easy bruising, easy bleeding *Physical Exam - Vital Signs Last Vital Signs Temp Pulse Resp BP Pulse Ox 98.5 F 82 18 135/57 L 95 08/25/18 21:12 08/25/18 21:12 08/25/18 21:12 08/25/18 21:12 08/25/18 21:12 - Physical Exam Comments: 08/25/18 22:00 GENERAL: The patient is awake, alert, and fully oriented, Nontoxic - in no acute distress. HEAD: Normocephalic, atraumatic. EYES: extraocular movements intact, sclera anicteric, conjunctiva clear. ENT: Normal voice, Moist mucous membranes. NECK: Normal range of motion, supple LUNGS: Breath sounds equal, clear to auscultation bilaterally. No wheezes, no rhonchi, no rales. HEART: Regular rate and rhythm, normal S1 and S2 without murmur, rub or gallop. ABDOMEN: slight distension in lower abdomen, no cva tenderness, no reboundgguarding EXTREMITIES: Normal range of motion, NEUROLOGICAL: No facial assymetry, Normal speech, PSYCH: Normal mood, normal affect. SKIN: Warm, Dry, normal turgor, Moderate Sedation - Procedure Monitoring Vital Signs: Procedure Monitoring Vital Signs Temperature 98.5 F 08/25/18 21:12 Pulse Rate 82 08/25/18 21:12 Respiratory Rate 18 08/25/18 21:12 Blood Pressure 135/57 L 08/25/18 21:12 O2 Sat by Pulse Oximetry (%) 95 08/25/18 21:12 Medical Decision Making - Medical Decision Making 08/25/18 22:09 73 presenting with urinary retention for appx5-6 hrs. de la torre cathter placed will obtian UA/culture no signs/symptoms of uti/pyelo anticipate dc with urology fu 08/25/18 22:54 pt put out approx 400cc of urine pt feels significant improvement no signs of uti will dc with uro fu return precautions were discussed I discussed the physical exam findings, ancillary test results and final diagnoses with the patient. I answered all of the patient's questions. The patient was satisfied with the care received and felt comfortable with the discharge plan and treatment plan. The patient will call their primary care physician within 24 hours to arrange follow-up and will return to the Emergency Department with any new, persistent or worsening symptoms. *DC/Admit/Observation/Transfer Diagnosis at time of Disposition: Urinary retention due to benign prostatic hyperplasia - Discharge Dispostion Disposition: HOME Condition at time of disposition: Improved Decision to Admit order: No - Referrals Referrals: Darrius Lopez MD [Staff Physician] - - Patient Instructions Printed Discharge Instructions: DI for Urinary Retention in Men Additional Instructions: Return to the emergency department immediately with ANY new, persistent or worsening symptoms. You MUST call and follow up with Dr. Jeffry Garcia tomorrow for further evaluation of your symptoms. Results were discussed with you. Please make sure your doctor reviews the results of your emergency evaluation. Print Language: EMIRATI - Post Discharge Activity
[2018-08-25 22:35] LABS: URINE APPEARANCE CLEAR; URINE BILIRUBIN NEGATIVE (<2.0 mg/dL); URINE COLOR STRAW; URINE GLUCOSE (UA) NEGATIVE (NEGATIVE); URINE KETONE NEGATIVE (NEGATIVE); URINE LEUK ESTERASE TRACE (NEGATIVE); URINE NITRITE NEGATIVE (NEGATIVE); URINE PROTEIN NEGATIVE (NEGATIVE); URINE UROBILINOGEN NEGATIVE mg/dL (0.2-1.0)
[2018-08-25 22:40] LABS: URINE BACTERIA RARE /hpf (NONE SEEN); URINE MUCUS RARE
== END 2018-08-25 23:14 | disposition home or self-care (01) ==
LOC: JER 20:58
PROC: 0T9B70Z Drainage of Bladder with Drainage Device, Via Natural or Artificial Opening (ICD-10-PCS; principal; 2018-08-25)
DX: N40.1 Benign prostatic hyperplasia with lower urinary tract symptoms (principal); R33.8 Other retention of urine
CPT/HCPCS: 81003; 81015; 87086; 87186; 99282-25

== ENCOUNTER 2018-10-31 10:06 | Day surgery (SDC) | payer OTHER ==
[2018-10-28 11:00] VITALS: BMI 23.4
[2018-10-31] MEDS ORDERED: oxyCODONE HCL 5 MG TABLET PO PRN ×2 (14:26)
[2018-10-31] MEDS ORDERED: ONDANSETRON 4 MG/2 ML VIAL IVPUSH PRN (14:26)
[2018-10-31] MEDS ORDERED: LACTATED RINGERS SOLUTION 1,000 ML IV SCH (14:30)
[2018-10-31] MEDS ORDERED: ETOMIDATE 20 MG/10 ML AMPUL IVPUSH ONE (14:53)
[2018-10-31] MEDS ORDERED: PROPOFOL 20 ML ONE ×3 (14:53→15:53)
[2018-10-31] MEDS ORDERED: LIDOCAINE HCL/PF 2% SDV 5ML VIAL ONE (14:54)
[2018-10-31] MEDS ORDERED: SUCCINYLCHOLINE CHLORIDE 200 MG/10 ML VIAL ONE (14:54)
[2018-10-31] MEDS ORDERED: MIDAZOLAM HCL 2 MG/2 ML SINGLE DOSE VIAL ONE (14:58)
[2018-10-31] MEDS ORDERED: ALBUTEROL SO4 8 GM HFA INHALER IH ONE ×2 (15:05)
[2018-10-31] MEDS ORDERED: ESMOLOL HCL 100,000 MCG/10 ML VIAL ONE (16:53)
[2018-10-31] MEDS ORDERED: LABETALOL HCL 5 MG/1 ML (100MG/20 ML VIAL) ONE (16:53)
[2018-10-31] MEDS ORDERED: DEXAMETHASONE SOD PHOSPHATE 4 MG/1 ML VIAL ONE (16:53)
--- NOTE | 2018-10-31 17:22 | OP ---
Operative Note - Note: Operative Date: 10/31/18 Pre-Operative Diagnosis: bph/urinary retention Operation: transurethral resection and vaporization of the prostate with bipolar system Post-Operative Diagnosis: Same as Pre-op Surgeon: Darrius Lopez Anesthesia: General Specimens Removed: prostatic chips Drains & Tubes with Location: [address]
[2018-11-01 03:02] VITALS: TEMP 98.5
[2018-11-01 06:04] VITALS: BP 149/80; PULSE 71
--- NOTE | 2018-11-02 15:01 | PATH ---
Surgical Pathology Report Patient Name: MC CAVAZOS [facility]. Rec. #: [id number] /Age/Gender: 1945 (Age: 73) / M Account: [id number] Location: U SURGICAL Taken: 10/31/2018 Received: 11/01/2018 Reported: 11/02/2018 Physicians: Darrius Lopez Specimen(s) Received PROSTATE CHIPS Clinical History Benign prostatic hyperplasia Final Diagnosis PROSTATE, TRANSURETHRAL RESECTION OF PROSTATE: BENIGN PROSTATIC TISSUE WITH ACUTE AND CHRONIC INFLAMMATION, ACINAR ATROPHY, CYSTIC CHANGES, GLANDULAR AND STROMAL HYPERPLASIA. UROTHELIAL MUCOSA WITH FOCAL CYSTITIS CYSTICA AND GLANDULARIS. Electronically Signed Althea Dixon M.D. Gross Description Received in formalin labeled "prostate chips," is a 5 g, with a 5.5 x 4.0 x 0.4 cm aggregate of multiple kowalski, irregular, firm to rubbery portions of tissue, consistent with prostate chips. The specimen is entirely submitted in 7 cassettes. /11/01/2018 [facility]/01/2018
--- NOTE | 2018-11-11 10:05 | OP ---
DATE OF OPERATION: 10/31/2018 PREOPERATIVE DIAGNOSIS: Benign prostatic hypertrophy and urinary retention. POSTOPERATIVE DIAGNOSIS: Benign prostatic hypertrophy and urinary retention. ATTENDING: Dilcia Lang MD ANESTHESIA: General. PROCEDURE: Transurethral resection and vaporization of the prostate with bipolar system. DESCRIPTION OF PROCEDURE: The patient was brought in the operating room, placed in supine position on the operating room table. Anesthesia and preoperative antibiotics were administered without complications. Patient was then placed in the dorsal lithotomy position and prepped and draped in the usual sterile manner. A resectoscope was placed under visualization into the bladder. The bladder was investigated and noted to have no evidence of stones or neoplasm. A 3+ obstructive prostate was noted. Resection of the prostate in order to debulk the prostate was performed initially. The margins of the resection were the bladder neck proximally and the verumontanum distally. The resection was performed in a 360-degree fashion. The resection was taken down to the level of the pseudocapsule of the prostate. Once this was performed, all prostatic chips were evacuated from the bladder utilizing the Sure Chill evacuator. At this point, the working element, which had been the loop, was changed to a button. Vaporization and cauterization was then ensured utilizing the button element of the bipolar system. Residual tissue was vaporized, and excellent hemostasis was attained within the prostatic fossa. The margins of the vaporization and cauterization were the bladder neck proximally and the verumontanum distally. This was done again in a 360-degree fashion. Excellent hemostasis was attained. The bladder was investigated and noted to have no evidence of residual prostatic tissue. There was no evidence of perforation of the bladder. The abdomen was soft on examination during the procedure. With excellent hemostasis, the resectoscope was removed, and a Chandler catheter placed, 30 mL were inflated into the balloon of the catheter and placed on light traction. Excellent drainage was noted which was light pink in color. The disposition of the patient was to the recovery room. The catheter had been placed to straight drainage. The patient will be observed in the recovery room and the postop area. If the patient continues to do well, he will be discharged home. DILCIA LANG M.D. [id number]
== END 2018-11-01 11:54 | disposition home or self-care (01) ==
LOC: JASU-SURG 10:06 → J6S 20:12 → JASU-SURG 11-01 11:54
PROVIDERS: ATTEND Urology
PROC: 0VT08ZZ Resection of Prostate, Via Natural or Artificial Opening Endoscopic (ICD-10-PCS; principal; 2018-10-31 12:00)
DX: N40.1 Benign prostatic hyperplasia with lower urinary tract symptoms (principal); R33.8 Other retention of urine; E11.9 Type 2 diabetes mellitus without complications; Z79.84 Long term (current) use of oral hypoglycemic drugs; I10 Essential (primary) hypertension
CPT/HCPCS: 88305-TC; 94760

== ENCOUNTER 2019-01-04 03:00 | Emergency (ER) | payer OTHER ==
[2019-01-04 03:14] VITALS: BMI 24.2
--- NOTE | 2019-01-04 03:46 | PDOC ---
History of Present Illness - History of Present Illness Initial Comments: 01/04/19 03:46 Mr. Swan is a 73 yo male w/ pmh of Asthma, HTN, and gout who presents for evaluation of 3 day history of asthma exacerbation. Patient reports he has recently had dry cough unresponsive to his home nebulizer or albuterol treatments. Is now having centralized, non-radiating chest pain he attributes to his coughing. Is also complaining of pain upon swallowing. He denies other complaints at this time. The patient denies headache and dizziness. Denies fever, chills, nausea, vomit , diarrhea and constipation. Denies dysuria, frequency, urgency and hematuria. <Pedro Luis Fajardo - Last Filed: 01/04/19 07:26> <Feliz Kelly - Last Filed: 01/04/19 08:06> - General Chief Complaint: Asthma Stated Complaint: ASTHMA Time Seen by Provider: 01/04/19 03:45 Past History - Past Medical History Anemia: No Asthma: Yes Cancer: No Cardiac Disorders: No CVA: No COPD: No CHF: No Dementia: No Diabetes: Yes GI Disorders: No Disorders: Yes (Prostate x4 urinary) HTN: Yes Hypercholesterolemia: No Liver Disease: No Seizures: No Thyroid Disease: No - Surgical History Abdominal Surgery: No Appendectomy: No Cardiac Surgery: No Cholecystectomy: No Lung Surgery: No Neurologic Surgery: No Orthopedic Surgery: Yes (pt states "I had 2 back surgeries in 1959, but doesn't remember what type") - Immunization History Immunization Up to Date: Yes - Suicide/Smoking/Psychosocial Hx Smoking Status: No Smoking History: Never smoked Years of Tobacco Use: 50 Have you smoked in the past 12 months: No Number of Cigarettes Smoked Daily: 0 If you are a former smoker, when did you quit?: n Information on smoking cessation initiated: No Hx Alcohol Use: No Drug/Substance Use Hx: No Substance Use Type: None Hx Substance Use Treatment: No <Pedro Luis Fajardo - Last Filed: 01/04/19 07:26> <Feliz Kelly - Last Filed: 01/04/19 08:06> - Past Medical History Allergies/Adverse Reactions: Allergies Allergy/AdvReac Type Severity Reaction Status Date / Time ibuprofen [From Motrin] Allergy Severe dyspnea Verified 10/28/18 11:01 Home Medications: Ambulatory Orders Albuterol Sulfate [Proventil HFA Inhaler -] 1 - 2 inh IH TID 04/17/17 Allopurinol [Zyloprim -] 100 mg PO BID 04/17/17 Amlodipine Besylate/Benazepril [Lotrel 5-40 mg Capsule] 1 each PO DAILY Cholecalciferol (Vitamin D3) [Vitamin D3] 5,000 unit PO WEEKLY 08/15/18 Zolpidem Tartrate [Ambien] 10 mg PO HS PRN 08/15/18 ASA - 81 mg PO BID 10/28/18 Atorvastatin Ca [Lipitor] 40 mg PO HS 10/28/18 Albuterol Sulfate Inhaler - [Ventolin Hfa Inhaler -] 1 - 2 inh PO DAILY Tamsulosin HCl [Flomax] 0.4 mg PO DAILY 10/31/18 levoFLOXacin [Levaquin -] 500 mg PO DAILY #7 tablet 10/31/18 Prednisone [Deltasone] 40 mg PO DAILY #8 tablet 01/04/19 Review of Systems - Review of Systems Comments:: 01/04/19 03:46 GENERAL/CONSTITUTIONAL: No fever or chills. No weakness. HEAD, EYES, EARS, NOSE AND THROAT: +Sore throat as described. No change in vision. No ear pain or discharge. CARDIOVASCULAR: +Chest pain w/ sob as described. RESPIRATORY: +3 days of cough. No wheezing, or hemoptysis. GASTROINTESTINAL: No nausea, vomiting, diarrhea or constipation. GENITOURINARY: No dysuria, frequency, or change in urination. MUSCULOSKELETAL: No joint or muscle swelling or pain. No neck or back pain. SKIN: No rash NEUROLOGIC: No headache, vertigo, loss of consciousness, or change in strength/ sensation. ENDOCRINE: No increased thirst. No abnormal weight change HEMATOLOGIC/LYMPHATIC: No anemia, easy bleeding, or history of blood clots. ALLERGIC/IMMUNOLOGIC: No hives or skin allergy. <Pedro Luis Fajardo - Last Filed: 01/04/19 07:26> *Physical Exam - Vital Signs Last Vital Signs Temp Pulse Resp BP Pulse Ox 98.6 F 92 H 22 H 163/84 97 01/04/19 03:00 01/04/19 03:00 01/04/19 03:00 01/04/19 03:00 01/04/19 03:00 - Physical Exam Comments: 01/04/19 03:46 GENERAL: Awake, alert, and fully oriented, in no acute distress HEAD: No signs of trauma, normocephalic, atraumatic EYES: PERRLA, EOMI, sclera anicteric, conjunctiva clear ENT: Auricles normal inspection, hearing grossly normal, nares patent, oropharynx clear without exudates. Moist mucosa NECK: Normal ROM, supple, no lymphadenopathy, JVD, or masses LUNGS: +Poor air movement limited lung evaluation. Otherwise No distress, speaks full sentences HEART: Regular rate and rhythm, normal S1 and S2, no murmurs, rubs or gallops, peripheral pulses normal and equal bilaterally. ABDOMEN: Soft, nontender, normoactive bowel sounds. No guarding, no rebound. No masses EXTREMITIES: Normal inspection, Normal range of motion, no edema. No clubbing or cyanosis. NEUROLOGICAL: Cranial nerves II through XII grossly intact. Normal speech, normal gait, no focal sensorimotor deficits SKIN: Warm, Dry, normal turgor, no rashes or lesions noted. <Pedro Luis Fajardo - Last Filed: 01/04/19 07:26> - Vital Signs Last Vital Signs Temp Pulse Resp BP Pulse Ox 98.6 F 82 18 152/76 98 01/04/19 03:00 01/04/19 06:46 01/04/19 06:46 01/04/19 06:46 01/04/19 06:46 <Feliz Kelly - Last Filed: 01/04/19 08:06> ED Treatment Course - LABORATORY CBC & Chemistry Diagram: 01/04/19 04:17 01/04/19 04:17 <Pedro Luis Fajardo - Last Filed: 01/04/19 07:26> - LABORATORY CBC & Chemistry Diagram: 01/04/19 04:17 01/04/19 04:17 - ADDITIONAL ORDERS Additional order review: Laboratory Results 01/04/19 01/04/19 06:56 04:17 Sodium 142 Potassium 3.7 Chloride 110 H Carbon Dioxide 26 Anion Gap 7 L BUN 16 Creatinine 1.0 Creat Clearance w eGFR 72.85 Random Glucose 107 H Calcium 8.7 Total Bilirubin 0.4 AST 17 ALT 14 Alkaline Phosphatase 115 Creatine Kinase 259 Creatine Kinase Index 0.8 CK-MB (CK-2) 2.2 Troponin I < 0.02 < 0.02 Total Protein 7.2 Albumin 3.5 01/04/19 04:17 RBC 3.49 L MCV 93.0 MCHC 33.9 RDW 14.3 MPV 8.6 D Neutrophils % 67.6 Lymphocytes % 14.5 D Monocytes % 9.6 Eosinophils % 7.9 H D Basophils % 0.4 - Medications Given in the ED: ED Medications Discontinued Medications Generic Name Dose Route Start Last Admin Trade Name Sol PRN Reason Stop Dose Admin Albuterol/Ipratropium 1 amp 01/04/19 03:57 01/04/19 04:20 Duoneb - NEB 01/04/19 03:58 1 amp ONCE ONE Administration Sodium Chloride 1,000 mls @ 1,000 mls/hr 01/04/19 03:57 01/04/19 04:20 Normal Saline - IV 01/04/19 04:56 1,000 mls/hr ASDIR STA Administration Prednisone 40 mg 01/04/19 03:59 01/04/19 04:20 Deltasone - PO 01/04/19 04:00 40 mg ONCE ONE Administration <Feliz Kelly - Last Filed: 01/04/19 08:06> Medical Decision Making - Medical Decision Making 01/04/19 05:23 Mr. Swan is a 73 yo male w/ pmh as described who presents for evaluation of asthma exacerbation symptoms. Patient improved following breathing treatment and prednisone in ED. No concerning findings found on labs as below. Strep and flu negative. CXR negative. EKG negative. Patient pending 0715 repeat troponin for discharge home. Laboratory Results - last 24 hr 01/04/19 01/04/19 01/04/19 04:17 04:17 04:17 WBC 6.6 RBC 3.49 L Hgb 11.0 L Hct 32.4 L MCV 93.0 MCH 31.5 MCHC 33.9 RDW 14.3 Plt Count 169 MPV 8.6 D Absolute Neuts (auto) 4.4 Neutrophils % 67.6 Lymphocytes % 14.5 D Monocytes % 9.6 Eosinophils % 7.9 H D Basophils % 0.4 Nucleated RBC % 0 Sodium 142 Potassium 3.7 Chloride 110 H Carbon Dioxide 26 Anion Gap 7 L BUN 16 Creatinine 1.0 Creat Clearance w eGFR 72.85 Random Glucose 107 H Calcium 8.7 Total Bilirubin 0.4 AST 17 ALT 14 Alkaline Phosphatase 115 Creatine Kinase 259 Creatine Kinase Index 0.8 CK-MB (CK-2) 2.2 Troponin I < 0.02 Total Protein 7.2 Albumin 3.5 Influenza A (Rapid) Influenza B (Rapid) Group A Strep Rapid Negative 01/04/19 04:17 WBC RBC Hgb Hct MCV MCH MCHC RDW Plt Count MPV Absolute Neuts (auto) Neutrophils % Lymphocytes % Monocytes % Eosinophils % Basophils % Nucleated RBC % Sodium Potassium Chloride Carbon Dioxide Anion Gap BUN Creatinine Creat Clearance w eGFR Random Glucose Calcium Total Bilirubin AST ALT Alkaline Phosphatase Creatine Kinase Creatine Kinase Index CK-MB (CK-2) Troponin I Total Protein Albumin Influenza A (Rapid) Negative Influenza B (Rapid) Negative Group A Strep Rapid <Pedro Luis Fajardo - Last Filed: 01/04/19 07:26> - Medical Decision Making pt endorsed to me by Dr. castaneda to f/u 2nd set of cardiac enzymes. pt presented with sxs c/w acute asthma excacerbation. pt resting comfortbaly, sxs free. 2nd troponin is negative. findings discussed with pt and . will d /c. 01/04/19 08:05 <Feliz Kelly - Last Filed: 01/04/19 08:06> *DC/Admit/Observation/Transfer <Pedro Luis Fajardo - Last Filed: 01/04/19 07:26> - Discharge Dispostion Decision to Admit order: No <Feliz Kelly - Last Filed: 01/04/19 08:06> Diagnosis at time of Disposition: Asthma exacerbation Qualifiers: Asthma severity: unspecified severity Asthma persistence: unspecified Qualified Code(s): J45.901 - Unspecified asthma with (acute) exacerbation - Discharge Dispostion Disposition: HOME Condition at time of disposition: Stable - Prescriptions Prescriptions: Prednisone [Deltasone] 40 mg PO DAILY #8 tablet - Patient Instructions Printed Discharge Instructions: Asthma -- Adult Additional Instructions: You were evaluated today in the ER for your symptoms and found to have an asthma exacerbation. We performed labs, Xray, and EKG with no concerning findings. We have also sent a prescription to your pharmacy for steroids. Take all medications as proscribed. Please follow-up with primary care provider later this week for further evaluation. Return to ER if any fever, chills, pain , or other concerning symptoms.
[2019-01-04] MEDS ORDERED: ALBUTEROL SO4 2.5/IPRATROPIUM 0.5 INH SOL 3 ML VIAL.NEB. NEB ONE ×2 (03:57→04:02)
[2019-01-04] MEDS ORDERED: SODIUM CHLORIDE 1,000 ML IV STA (03:57)
[2019-01-04] MEDS ORDERED: predniSONE 20 MG TABLET (UD) PO ONE (03:59)
[2019-01-04] MEDS ORDERED: predniSONE 20 MG TABLET (UD) ONE (04:02)
[2019-01-04 04:29] LABS: BASO % 0.4 % (0-2.0); EOS % 7.9 % (0-4.5); HEMATOCRIT 32.4 % (35.4-49); LYMPH % 14.5 % (8-40); MCH 31.5 pg (25.7-33.7); MCHC 33.9 g/dl (32.0-35.9); MEAN PLT VOLUME 8.6 fl (7.5-11.1); MONO % 9.6 % (3.8-10.2); NEUT % 67.6 % (42.8-82.8); PLATELET COUNT 169 K/MM3 (134-434); RBC 3.49 M/mm3 (4.00-5.60); RDW 14.3 % (11.9-15.9); WHITE BLOOD COUNT 6.6 K/mm3 (4.0-10.0)
--- NOTE | 2019-01-04 04:55 | PDOC ---
Attending Attestation - Resident Resident Name: Pedro Luis Fajardo - ED Attending Attestation I have performed the following: I have examined & evaluated the patient, The case was reviewed & discussed with the resident, I agree w/resident's findings & plan, Exceptions are as noted - HPI HPI: 01/04/19 06:03 The patient is a 73 year old male with a PMH of asthma, HTN, BPH,and gout who presents for an evaluation of sob, dry coughing and chest tightness over the past 3 days. Patient states chest tightness occurs only when he is coughing. Patient has been using his asthma pump and advair multiple times throughout the day. Patient has been hospitalized once for his asthma, but has never required intubation or ICU stay. Unknown when the patient last took steroids. Not currently on home O2. Denies recent travel or immobility. The patient denies headache and dizziness. Denies fever, chills, nausea, vomit, diarrhea and constipation. Denies dysuria, frequency, urgency and hematuria. Allergies: NKA Past surgical history: None reported. Social history: No reported alcohol, drug or cigarette use. - Physicial Exam PE: 01/04/19 06:10 "GENERAL: Awake, alert, and fully oriented, in no acute distress. Hoarse voice but speaking in full sentences. EYES: PERRLA, EOMI, sclera anicteric, conjunctiva clear ENT: Oropharynx clear without exudates. Moist mucosa NECK: Normal ROM, supple, no lymphadenopathy, JVD, or masses LUNGS: (+) Diminished breath sounds throughout. No wheezes, and no crackles. Normal RR HEART: Regular rate and rhythm, normal S1 and S2, no murmurs, rubs or gallops ABDOMEN: Soft, nontender, normoactive bowel sounds. No guarding, no rebound. No masses EXTREMITIES: Normal range of motion, no edema. No cords, erythema, or tenderness NEUROLOGICAL: Normal speech, cranial nerves intact, equal strength and sensation b/l SKIN: Warm, Dry, normal turgor, no rashes or lesions noted." - Medical Decision Making 01/04/19 06:18 73yo M hx asthma presents to the ED with SOB, dry cough, and chest tightness while coughing. Vitals unremarkable (initially tachypneic to 22 on arrival, RR 18 on my eval). Exam with diminished BS throughout. Likely asthma exacerbation but given chest tightness, ACS on ddx. Pt with no RF for PE, thus low likelihood. Plan for labs, XR, nebs, steroids, tropx2, reassess. Heart Score/ECG Review #1 01/04/19 06:23 Twelve-lead EKG was performed and reviewed by me. Normal sinus rhythm, rate 79. Normal axis. No ST elevations.+ Right bundle branch block. When compared to EKG from July 2018, right bundle branch block is new.
[2019-01-04 04:59] LABS: ALBUMIN 3.5 g/dl (3.4-5.0); ALK PHOS 115 U/L (45-117); ANION GAP 7 MMOL/L (8-16); BILIRUBIN,TOTAL 0.4 mg/dL (0.2-1); BLOOD UREA NITROGEN 16 mg/dL (7-18); CALCIUM 8.7 mg/dL (8.5-10.1); CHLORIDE 110 mmol/L (98-107); CO2 26 mmol/L (21-32); GLUCOSE,RANDOM 107 mg/dL (74-106); POTASSIUM 3.7 mmol/L (3.5-5.1); SGOT/AST 17 U/L (15-37); SGPT/ALT 14 U/L (13-61); SODIUM 142 mmol/L (136-145); TOT PROT 7.2 g/dl (6.4-8.2)
[2019-01-04 08:25] VITALS: BP 137/73; PULSE 78; TEMP 99.2
--- NOTE | 2019-01-04 11:05 | EKG ---
Test Reason : Blood Pressure : / mmHG Vent. Rate : 079 BPM Atrial Rate : 079 BPM P-R Int : 140 ms QRS Dur : 130 ms QT Int : 402 ms P-R-T Axes : 046 -28 025 degrees QTc Int : 460 ms NORMAL SINUS RHYTHM RIGHT BUNDLE BRANCH BLOCK ABNORMAL ECG WHEN COMPARED WITH ECG OF 14-AUG-2018 21:41, RIGHT BUNDLE BRANCH BLOCK IS NOW PRESENT Confirmed by ERIKA PERALTA, CARLEY ([id number]) on 01/04/2019 11:04:35 AM Referred By: Confirmed By:CARLEY JAMES MD
== END 2019-01-04 08:25 | disposition home or self-care (01) ==
LOC: JER 03:00
PROC: 3E0337Z Introduction of Electrolytic and Water Balance Substance into Peripheral Vein, Percutaneous Approach (ICD-10-PCS; principal; 2019-01-04)
PROC: 3E0F7GC Introduction of Other Therapeutic Substance into Respiratory Tract, Via Natural or Artificial Opening (ICD-10-PCS; 2019-01-04)
DX: J45.901 Unspecified asthma with (acute) exacerbation (principal); I10 Essential (primary) hypertension; J45.909 Unspecified asthma, uncomplicated
CPT/HCPCS: 36415; 71045-TC-FY; 80053; 82550; 82553; 84484; 85025; 87070; 87804; 87880; 93005; 93010; 99282-25; J7030

== ENCOUNTER 2021-05-27 15:40 | Emergency (ER) | payer OTHER ==
[2021-05-27 16:08] VITALS: BP 126/70; PULSE 95; TEMP 98.5; BMI 39.6
[2021-05-27] MEDS ORDERED: ACETAMINOPHEN 325 MG TABLET (FP) PO ONE (16:35)
[2021-05-27] MEDS ORDERED: ACETAMINOPHEN 500 MG TABLET (FP) ONE (16:54)
== END 2021-05-27 18:05 | disposition home or self-care (01) ==
LOC: JERFT 15:40
DX: M79.602 Pain in left arm (principal); V49.40XA Driver injured in collision with unspecified motor vehicles in traffic accident, initial encounter
CPT/HCPCS: 73030-TC-LT-FY; 99283-25

== ENCOUNTER 2023-07-07 04:49 | Day surgery (SDC) | payer OTHER ==
[2023-07-05 15:58] VITALS: BMI 26.1
[~2023-07-07 04:49] MED LIST changes: +ACETAMINOPHEN 325 MG TABLET (FP) PO PRN; +CYCLOPENTOLATE HCL 1% OPHTH SOLN 2 ML BOTTLE OP SCH; +KETOROLAC TROMETHAMINE 0.5% EYE DROP 1 DROP DROPS OP SCH; -KETOROLAC TROMETHAMINE 30 MG/1 ML VIAL IVPUSH ONE; -KETOROLAC TROMETHAMINE 30 MG/1 ML VIAL ONE; +OFLOXACIN 0.3% OPHTHALMIC SOLUTION 5 ML BOTTLE OP SCH; +PHENYLEPHRINE 2.5% OPHTH SOLN 15 ML BOTTLE OP SCH; -SODIUM CHLORIDE 500 ML IV STA; +TROPICAMIDE 1% OPHTH SOLN 15 ML BOTTLE OP SCH; +VANCOMYCIN 500 MG VIAL (RESTRICTED TO ID ONLY) IVPB ONE
[2023-07-07] MEDS ORDERED: PHENYLEPHRINE/KETOROLAC 4 ML VIAL IO ONE ×2 (07:22→10:28)
[2023-07-07] MEDS ORDERED: POVIDONE-IODINE 5% OPHTHALMIC PREP 30 ML SOLUTION ONE (07:22)
[2023-07-07] MEDS ORDERED: BSS (NA/CA/MG/K) BALANCED SALT SOLUTION OPHTH SOLN 15 ML BOTTLE ONE (07:22)
[2023-07-07] MEDS ORDERED: LIDOCAINE HCL/PF 1% SDV 5ML VIAL ONE (07:25)
[2023-07-07] MEDS ORDERED: PHENYLEPHRINE 2.5% OPTHALMIC DROP 2ML BOTTLE ONE (08:11)
[2023-07-07] MEDS ORDERED: CYCLOPENTOLATE HCL 1% OPHTH SOLN 2 ML BOTTLE ONE (08:11)
[2023-07-07] MEDS ORDERED: TROPICAMIDE 1% OPHTH SOLN 15 ML BOTTLE ONE (08:11)
[2023-07-07] MEDS ORDERED: KETOROLAC TROMETHAMINE 0.5% EYE DROP 1 DROP DROPS ONE (08:11)
[2023-07-07] MEDS ORDERED: OFLOXACIN 0.3% OPHTHALMIC SOLUTION 5 ML BOTTLE ONE (08:11)
[2023-07-07 08:35] VITALS: RESP 18
[2023-07-07] MEDS ORDERED: LIDOCAINE HCL/PF 2% SDV 5ML VIAL INF ONE (10:15)
[2023-07-07] MEDS ORDERED: BUPIVACAINE HCL/PF 0.75% 10 ML VIAL NR ONE (10:15)
[2023-07-07] MEDS ORDERED: POVIDONE-IODINE 5% OPHTHALMIC PREP 30 ML SOLUTION OS ONE ×2 (10:16)
[2023-07-07] MEDS ORDERED: BSS (NA/CA/MG/K) BALANCED SALT SOLUTION OPHTH SOLN 15 ML BOTTLE OS ONE ×2 (10:23)
[2023-07-07] MEDS ORDERED: CHONDROITIN SU A/HYALUR SOD 1 KIT IO ONE (10:24)
[2023-07-07] MEDS ORDERED: LIDOCAINE HCL 1% PRESERVATIVE FREE - 30ML VIAL IO ONE ×2 (10:24)
[2023-07-07] MEDS ORDERED: VANCOMYCIN 500 MG VIAL (RESTRICTED TO ID ONLY) IVPB ONE (10:42)
[2023-07-07 13:57] VITALS: BP 150/68; PULSE 76; TEMP 98.4
== END 2023-07-07 11:37 | disposition home or self-care (01) ==
LOC: JASU-SURG 04:49
PROVIDERS: ATTEND Ophthalmology
PROC: 08RK3JZ Replacement of Left Lens with Synthetic Substitute, Percutaneous Approach (ICD-10-PCS; principal; 2023-07-07 10:00)
DX: H26.9 Unspecified cataract (principal)
CPT/HCPCS: J1097; V2632

== ENCOUNTER 2024-01-11 06:13 | Emergency (ER) | payer OTHER ==
[2024-01-11 06:38] VITALS: BMI 19.8
[2024-01-11] MEDS: methylPREDNISolone NA SUCC 125 MG/2 ML VIAL IVPUSH ONE (08:15)
[2024-01-11] MEDS: ALBUTEROL SO4 2.5/IPRATROPIUM 0.5 INH SOL 3 ML VIAL.NEB. NEB SCH (08:15)
[2024-01-11] MEDS ORDERED: methylPREDNISolone NA SUCC 125 MG/2 ML VIAL ONE (08:17)
[2024-01-11] MEDS ORDERED: ALBUTEROL SO4 2.5/IPRATROPIUM 0.5 INH SOL 3 ML VIAL.NEB. NEB ONE (08:17)
[2024-01-11 08:34] LABS: BASO % 0.5 % (0-2.0); EOS % 5.3 % (0-4.5); HEMATOCRIT 35.8 % (35.4-49); HEMOGLOBIN 11.8 GM/dL (11.7-16.9); LYMPH % 15.4 % (8-40); MCH 30.6 pg (25.7-33.7); MCHC 32.8 g/dl (32.0-35.9); MEAN CELL VOLUME 93.3 fl (80-96); MEAN PLT VOLUME 7.7 fl (7.5-11.1); MONO % 8.5 % (3.8-10.2); NEUT % 70.3 % (42.8-82.8); PLATELET COUNT 295 10^3/uL (134-434); RBC 3.84 M/mm3 (4.00-5.60); RDW 14.1 % (11.9-15.9); WHITE BLOOD COUNT 8.9 K/mm3 (4.0-10.0)
[2024-01-11 08:40] LABS: INR 1.12 (0.83-1.09)
[2024-01-11 08:42] LABS: ACTIVATED PTT 31.2 SECONDS (25.2-36.5)
[2024-01-11 08:58] LABS: POTASSIUM 4.3 mmol/L (3.5-5.1)
[2024-01-11 09:00] LABS: ALBUMIN 3.6 g/dl (3.4-5.0); CALCIUM 8.9 mg/dL (8.5-10.1)
[2024-01-11 09:01] LABS: BLOOD UREA NITROGEN 27.1 mg/dL (7-18)
[2024-01-11 09:03] LABS: CREATININE 1.8 mg/dL (0.55-1.3)
[2024-01-11 09:05] LABS: BILIRUBIN,TOTAL 0.4 mg/dL (0.2-1); TOT PROT 7.5 g/dl (6.4-8.2)
[2024-01-11 09:08] LABS: N-TERMINAL BNP 74.9 pg/ml (5-450)
[2024-01-11] MEDS: SODIUM CHLORIDE 0.9% 500 ML INFUS.BAG IV ONE (10:01)
[2024-01-11 11:47] VITALS: BP 116/56; PULSE 94; RESP 16; TEMP 98
== END 2024-01-11 12:00 | disposition home or self-care (01) ==
LOC: JER 06:13
PROC: 3E033GC Introduction of Other Therapeutic Substance into Peripheral Vein, Percutaneous Approach (ICD-10-PCS; principal; 2024-01-11)
PROC: 3E0F7GC Introduction of Other Therapeutic Substance into Respiratory Tract, Via Natural or Artificial Opening (ICD-10-PCS; 2024-01-11)
DX: R05.1 Acute cough (principal); R06.02 Shortness of breath; R07.89 Other chest pain; J44.1 Chronic obstructive pulmonary disease with (acute) exacerbation; Z20.822 Contact with and (suspected) exposure to COVID-19
CPT/HCPCS: 0241U-QW; 36415; 71045-TC-FY; 80053; 83880; 84484; 85025; 85610; 85730; 87651; 93005; 93010; 99285-25